=== PATIENT | male | born 1950 | race Caucasian/White ===

== ENCOUNTER 2020-02-11 11:50 | Outpatient (REF) | payer OTHER, SELFPAY ==
[2020-02-11 13:52] LABS: MANUAL DIFF FLAG NO
[2020-02-11 13:57] LABS: Basophils Absolute Auto 0.1 X10*3/uL (0.0-0.2); Basophils Percent Auto 0.7 % (0-2); Eosinophils Absolute Auto 0.2 X10*3/uL (0.0-0.4); Eosinophils Percent Auto 2.9 % (0-4); Hematocrit 41.8 % (42-52); Imm Gran Abs Auto 0.03 X10*3/uL (0.00-0.03); Imm Gran Pct Auto 0.4 % (0.0-0.4); Lymphocytes Percent Auto 24.4 % (20-40); Mean Corpuscular HGB Conc 33.5 g/dl (31.0-36.0); Mean Corpuscular Hemoglobin 31.7 pg (27.0-33.0); Mean Corpuscular Volume 94.8 fL (80-98); Mean Platelet Volume 9.7 fL (9.4-12.4); Monocytes Absolute Auto 0.6 X10*3/uL (0.1-1.2); Monocytes Percent Auto 7.3 % (2-11); Neutrophils Absolute Auto 5.2 X10*3/uL (2.0-8.3); Neutrophils Percent Auto 64.3 % (45-73); Platelet Count 357 X10*3/uL (160-400); Red Blood Count 4.41 X10*6/uL (4.60-5.80); Red Cell Distribution Width 11.9 % (11.0-16.0); White Blood Count 8.1 X10*3/uL (4.8-10.8)
[2020-02-11 14:02] LABS: Estimated Average Glucose 171 mg/dL; Hemoglobin A1c % 7.6 %
[2020-02-11 14:24] LABS: Alanine Aminotransferase 35 U/L (0-40); Albumin Level 4.5 g/dL (3.5-5.0); Alkaline Phosphatase 111 U/L (39-117); Anion Gap 14 (12-20); Aspartate Amino Transferase 34 U/L (5-37); Bilirubin Total 0.5 mg/dL (0.0-1.0); Blood Urea Nitrogen 15 mg/dL (9-16); Calcium 9.2 mg/dL (8.4-10.2); Carbon Dioxide 27 mmol/L (22-29); Chloride 99 mmol/L (96-108); Estimated Glomerular Filt Rate > 60; Glucose Random 123 mg/dL (60-115); Potassium 4.4 mmol/l (3.3-5.1); Sodium 136 mmol/L (135-145); Total Protein 7.7 g/dL (6.5-8.0)
== END 2020-02-11 11:51 | disposition home or self-care (01) ==
LOC: HO.10HDL 11:50
PROVIDERS: PCP Internal Medicine; Visit Provider Internal Medicine
DX: E78.00 Pure hypercholesterolemia, unspecified (principal); E11.9 Type 2 diabetes mellitus without complications; I10 Essential (primary) hypertension
CPT/HCPCS: 36415; 80053; 83036; 85025

== ENCOUNTER 2020-04-20 13:57 | Outpatient (REF) | payer MEDICARE, MEDICAID, SELFPAY ==
[2020-04-20 15:06] LABS: Influenza A PCR NEGATIVE (Negative); Influenza B PCR NEGATIVE (Negative); Resp Syncy Virus RNA Qual PCR NEGATIVE (Negative); SARS COV2 PCR INHOUSE NEGATIVE (Negative)
== END 2020-04-20 13:58 | disposition home or self-care (01) ==
LOC: HO.LNP 13:57
PROVIDERS: Visit Provider Internal Medicine
DX: Z20.822 Contact with and (suspected) exposure to COVID-19 (principal)
CPT/HCPCS: 0241U

== ENCOUNTER 2020-05-26 10:56 | Outpatient (REF) | payer MEDICARE, MEDICAID, SELFPAY ==
--- NOTE | ~2020-05-26 | XR_ITS ---
EXAMINATION: XR CHEST CLINICAL INFORMATION: Hypertension. Diabetes. COMPARISON: None TECHNIQUE: 2 views of the chest were obtained. FINDINGS: The cardiac silhouette does not appear enlarged. The right pulmonary hilum appears prominent. There is more peripheral right upper or middle lobe linear scarring or subsegmental atelectasis. The lungs are otherwise clear. There is no pleural effusion or pneumothorax. There are degenerative changes of the spine. XR/XR chest 2V IMPRESSION: Prominent right pulmonary hilum and more peripheral linear scarring or subsegmental atelectasis. Comparison with old outside chest x-rays if available is recommended. Otherwise follow-up chest CT scan with IV contrast should be considered.
[2020-05-26 12:55] LABS: MANUAL DIFF FLAG NO
[2020-05-26 13:13] LABS: Basophils Absolute Auto 0.1 X10*3/uL (0.0-0.2); Basophils Percent Auto 0.6 % (0-2); Eosinophils Absolute Auto 0.4 X10*3/uL (0.0-0.4); Hematocrit 39.6 % (42-52); Imm Gran Abs Auto 0.03 X10*3/uL (0.00-0.03); Imm Gran Pct Auto 0.4 % (0.0-0.4); Lymphocytes Absolute Auto 1.8 X10*3/uL (1.2-4.9); Mean Corpuscular HGB Conc 32.8 g/dl (31.0-36.0); Mean Corpuscular Hemoglobin 31.3 pg (27.0-33.0); Mean Corpuscular Volume 95.2 fL (80-98); Mean Platelet Volume 9.9 fL (9.4-12.4); Monocytes Absolute Auto 0.6 X10*3/uL (0.1-1.2); Neutrophils Absolute Auto 5.1 X10*3/uL (2.0-8.3); Platelet Count 360 X10*3/uL (160-400); Red Blood Count 4.16 X10*6/uL (4.60-5.80); Red Cell Distribution Width 12.2 % (11.0-16.0)
[2020-05-26 13:33] LABS: Alanine Aminotransferase 33 U/L (0-40); Albumin Level 4.2 g/dL (3.5-5.0); Alkaline Phosphatase 110 U/L (39-117); Anion Gap 15 (12-20); Aspartate Amino Transferase 31 U/L (5-37); Bilirubin Total 0.6 mg/dL (0.0-1.0); Blood Urea Nitrogen 14 mg/dL (9-16); Calcium 8.9 mg/dL (8.4-10.2); Carbon Dioxide 24 mmol/L (22-29); Chloride 102 mmol/L (96-108); Estimated Glomerular Filt Rate > 60; Glucose Random 134 mg/dL (60-115); Potassium 4.1 mmol/L (3.3-5.1); Sodium 137 mmol/L (135-145); Total Protein 7.2 g/dL (6.5-8.0)
[2020-05-26 13:43] LABS: Creatinine Urine 79.43 mg/dL
[2020-05-26 14:00] LABS: Estimated Average Glucose 183 mg/dL
== END 2020-05-26 10:57 | disposition home or self-care (01) ==
LOC: HO.10HDL 10:56
PROVIDERS: Visit Provider Internal Medicine
DX: I10 Essential (primary) hypertension (principal); E11.9 Type 2 diabetes mellitus without complications; R05 Cough; N40.0 Benign prostatic hyperplasia without lower urinary tract symptoms
CPT/HCPCS: 36415; 71046; 80053; 82043; 83036; 85025

== ENCOUNTER 2020-06-03 08:13 | Outpatient (REF) | payer MEDICARE, MEDICAID, SELFPAY ==
--- NOTE | ~2020-06-03 | CT_ITS ---
EXAMINATION: CT CHEST WITH CONTRAST CLINICAL INFORMATION: Prominent right pulmonary hilum. COMPARISON: Chest x-ray 05/26/2020. TECHNIQUE: Multidetector volumetric CT imaging of the chest was obtained after the administration of 65 mL of Omnipaque 350 intravenous contrast without immediate adverse reactions. Axial MIP volume rendering provided. Sagittal and coronal reformatted images were obtained. This CT examination was performed using dose optimization techniques as appropriate, variously including the following: *Automated exposure control *Adjustment of mA and/or kV according to patient size (this includes techniques or standardized protocols for targeted exams where dose is matched to indication/reason for exam; i.e. extremities or head) *Use of iterative reconstruction technique DLP: 136 mGy-cm FINDINGS: LUNGS: There is confluent airspace opacity with volume loss in the medial aspect of the right upper lobe, inferiorly extending to the beronica. There is bronchiectasis present in this region. There is otherwise mild bronchiectasis in the right upper lobe, with patchy peribronchial opacities. 2 mm nodule right upper lobe, 9:98. 2 mm probable calcified nodule right lower lobe 9:132. MEDIASTINUM: Enlarged precarinal lymph node measuring 1.1 cm in short axis. Enlarged right hilar lymph node measuring 1.3 cm. No suspicious findings in the visualized thyroid gland. Normal caliber aorta. Coronary artery calcification. Normal heart size. No pericardial effusion. Esophagus is nondistended. PLEURA: There is no pleural effusion. No pleural mass or thickening. AXILLA: No lymphadenopathy. UPPER ABDOMEN: Hepatic steatosis. Fatty atrophy of the pancreas. Gallbladder is nondistended. Adrenal glands appear unremarkable. OSSEOUS STRUCTURES: Thoracic spondylosis. No acute findings. CT/CT chest w con IMPRESSION: 1. Confluent airspace opacity with volume loss, bronchiectasis in the medial aspect of the right upper lobe and the hilar region. There is otherwise peribronchial thickening and mild bronchiectasis in the right upper lobe as well. These findings may reflect infectious or inflammatory process. Recommend clinical correlation and management. Recommend 3-month follow-up CT for reassessment. 2. Enlarged mediastinal and right hilar lymph node. 3. Hepatic steatosis.
== END 2020-06-03 08:14 | disposition home or self-care (01) ==
LOC: HO.CT 08:13
PROVIDERS: Visit Provider Internal Medicine
DX: R91.8 Other nonspecific abnormal finding of lung field (principal)
CPT/HCPCS: 71260; Q9967

== ENCOUNTER → 2020-06-10 09:51 | Outpatient (BNVA) | payer MEDICARE, MEDICAID, SELFPAY | PROVIDERS: PCP Internal Medicine; Visit Provider Internal Medicine | DX: J47.9 Bronchiectasis, uncomplicated (principal) | CPT/HCPCS: 99202 ==

== ENCOUNTER 2020-08-21 09:06 | Outpatient (REF) | payer MEDICARE, MEDICAID, SELFPAY ==
--- NOTE | ~2020-08-21 | CT_ITS ---
EXAMINATION: CT CHEST WITHOUT CONTRAST CLINICAL INFORMATION: Bronchiectasis COMPARISON: Previous chest CT May 2020 TECHNIQUE: Multidetector volumetric CT imaging of the chest was done. Axial MIP volume rendering provided. Sagittal and coronal reformatted images were obtained. This CT examination was performed using dose optimization techniques as appropriate, variously including the following: *Automated exposure control *Adjustment of mA and/or kV according to patient size (this includes techniques or standardized protocols for targeted exams where dose is matched to indication/reason for exam; i.e. extremities or head) *Use of iterative reconstruction technique DLP: 192 mGy-cm FINDINGS: LUNGS: There is interval improvement in the atelectasis/consolidation seen in the anterior segment of the right middle lobe adjacent to the mediastinum and minor fissure. Radiographic abnormality in this region and [address] follow-up is recommended. There is a 3 mm calcified right middle lobe nodule in this region axial image 262 series 7 that is stable. There is a 2 mm right middle lobe nodule axial image 318 series 7 that is stable. The lungs are otherwise clear. MEDIASTINUM: There are small mediastinal lymph nodes. No enlarged lymph nodes are seen. There is a small amount of fluid seen in the mediastinum or pericardium versus bronchogenic or pericardial cyst adjacent to the right upper lobe atelectasis/consolidation that appears unchanged measuring 1 x 4 cm axial image 28 series 3. There is mild coronary artery calcification. PLEURA: There is no pleural effusion. No pleural mass or thickening. AXILLA: No lymphadenopathy. UPPER ABDOMEN: There is fatty infiltration of the pancreas. There may be a duodenal diverticulum and OSSEOUS STRUCTURES: There are degenerative changes of the spine. CT/CT chest wo con IMPRESSION: Improving right upper lobe atelectasis/consolidation from 06/17/2019 exam. Continued imaging follow-up recommended. Stable adjacent small amount of mediastinal or pericardial fluid versus a pericardial or bronchogenic cyst. Stable small pulmonary nodules. Coronary artery calcification.
== END 2020-08-21 09:07 | disposition home or self-care (01) ==
LOC: HO.CT 09:06
PROVIDERS: PCP Internal Medicine; Visit Provider Internal Medicine
DX: J47.9 Bronchiectasis, uncomplicated (principal)
CPT/HCPCS: 71250

== ENCOUNTER → 2020-09-14 09:54 | Outpatient (BNVA) | payer MEDICARE, MEDICAID, SELFPAY | PROVIDERS: PCP Internal Medicine; Visit Provider Internal Medicine | DX: R93.89 Abnormal findings on diagnostic imaging of other specified body structures (principal); J47.9 Bronchiectasis, uncomplicated | CPT/HCPCS: 99212 ==

== ENCOUNTER 2020-10-30 09:58 | Outpatient (REF) | payer MEDICARE, MEDICAID, SELFPAY ==
[2020-10-30 10:47] LABS: Estimated Average Glucose 151 mg/dL; Hemoglobin A1c % 6.9 %
[2020-10-30 10:52] LABS: Alanine Aminotransferase 34 U/L (0-40); Albumin Level 4.3 g/dL (3.5-5.0); Alkaline Phosphatase 86 U/L (39-117); Anion Gap 14 (12-20); Aspartate Amino Transferase 38 U/L (5-37); Bilirubin Total 0.8 mg/dL (0.0-1.0); Blood Urea Nitrogen 14 mg/dL (9-16); Calcium 9.7 mg/dL (8.4-10.2); Carbon Dioxide 25 mmol/L (22-29); Chloride 102 mmol/L (96-108); Estimated Glomerular Filt Rate > 60; Glucose Random 135 mg/dL (60-115); Potassium 4.5 mmol/L (3.3-5.1); Sodium 136 mmol/L (135-145); Total Protein 6.9 g/dL (6.5-8.0)
== END 2020-10-30 09:59 | disposition home or self-care (01) ==
LOC: HO.10HDL 09:58
PROVIDERS: Visit Provider Internal Medicine
DX: E11.9 Type 2 diabetes mellitus without complications (principal); I10 Essential (primary) hypertension
CPT/HCPCS: 36415; 80053; 83036

== ENCOUNTER 2021-02-18 12:42 | Outpatient (REF) | payer MEDICARE, MEDICAID, SELFPAY ==
--- NOTE | ~2021-02-18 | CT_ITS ---
EXAMINATION: CT CHEST WITHOUT CONTRAST CLINICAL INFORMATION: Bronchiectasis, uncomplicated. COMPARISON: CT chest 08/21/2020 TECHNIQUE: Multidetector volumetric CT imaging of the chest was done. Axial MIP volume rendering provided. Sagittal and coronal reformatted images were obtained. This CT examination was performed using dose optimization techniques as appropriate, variously including the following: *Automated exposure control *Adjustment of mA and/or kV according to patient size (this includes techniques or standardized protocols for targeted exams where dose is matched to indication/reason for exam; i.e. extremities or head) *Use of iterative reconstruction technique DLP: 170 mGy-cm FINDINGS: LUNGS: The previously seen atelectasis/consolidation in the anterior segment of the right middle lobe adjacent to the mediastinum and minor fissure that had previously shown interval improvement is stable in appearances when compared to the prior study. It appears as a band-like area of atelectasis or scarring adjacent to the mediastinum. A tiny focal calcification is seen within this. Evolution of findings are not suggestive of neoplastic disease. A few scattered right lung 1-2 mm micronodules (6:52, 59 and 116) are unchanged. MEDIASTINUM: Tiny fluid collection in the right anterior mediastinum adjacent to the above-mentioned resolving atelectasis/consolidation appears slightly smaller. PLEURA: There is no pleural effusion. No pleural mass or thickening. AXILLA: No lymphadenopathy. UPPER ABDOMEN: Unremarkable. OSSEOUS STRUCTURES: Degenerative changes present in the spine, most marked in the lower cervical/upper thoracic region. CT/CT chest wo con IMPRESSION: Stable appearance of right scarring/atelectasis. Other findings, as described above. Fleischner guidelines were followed.
== END 2021-02-18 12:43 | disposition home or self-care (01) ==
LOC: HO.CT 12:42
PROVIDERS: PCP Internal Medicine; Visit Provider Internal Medicine
DX: J47.9 Bronchiectasis, uncomplicated (principal); R93.89 Abnormal findings on diagnostic imaging of other specified body structures
CPT/HCPCS: 71250

== ENCOUNTER 2021-03-02 10:27 | Outpatient (REF) | payer MEDICARE, MEDICAID, SELFPAY ==
[2021-03-02 13:21] LABS: MANUAL DIFF FLAG NO
[2021-03-02 13:22] LABS: Basophils Absolute Auto 0.1 X10*3/uL (0.0-0.2); Eosinophils Absolute Auto 0.2 X10*3/uL (0.0-0.4); Eosinophils Percent Auto 3.7 % (0-4); Hematocrit 41.9 % (42.0-52.0); Hemoglobin 13.9 g/dl (14.0-18.0); Imm Gran Abs Auto 0.01 X10*3/uL (0.00-0.03); Imm Gran Pct Auto 0.2 % (0.0-0.4); Lymphocytes Absolute Auto 1.6 X10*3/uL (1.2-4.9); Lymphocytes Percent Auto 25.1 % (20-40); Mean Corpuscular HGB Conc 33.2 g/dl (31.0-36.0); Mean Corpuscular Hemoglobin 31.7 pg (27.0-33.0); Mean Corpuscular Volume 95.7 fL (80.0-98.0); Monocytes Absolute Auto 0.5 X10*3/uL (0.1-1.2); Monocytes Percent Auto 7.6 % (2-11); Neutrophils Absolute Auto 3.9 x10*3/uL (2.0-8.3); Neutrophils Percent Auto 62.4 % (45-73); Platelet Count 307 X10*3/uL (160-400); Red Blood Count 4.38 X10*6/uL (4.60-5.80); White Blood Count 6.2 X10*3/uL (4.8-10.8)
[2021-03-02 13:41] LABS: Estimated Average Glucose 171 mg/dL; Hemoglobin A1c % 7.6 %
[2021-03-02 13:43] LABS: Appearance Urine CLEAR; Color Urine YELLOW; Glucose Urine UA NEG (NEG); Leukocyte Esterase Urine NEG (NEG); Nitrite Urine NEG (NEG); Urine Blood NEG (NEG); Urine Ketones NEG (NEG); Urine Protein NEG (NEG-TRACE)
[2021-03-02 13:52] LABS: Alanine Aminotransferase 37 U/L (0-40); Albumin Level 4.2 g/dL (3.5-5.0); Alkaline Phosphatase 82 U/L (39-117); Anion Gap 11 (12-20); Aspartate Amino Transferase 30 U/L (5-37); Bilirubin Total 0.5 mg/dL (0.0-1.0); Blood Urea Nitrogen 13 mg/dL (9-16); Calcium 9.3 mg/dL (8.4-10.2); Carbon Dioxide 29 mmol/L (22-29); Chloride 103 mmol/L (96-108); Cholesterol 148 mg/dL; Estimated Glomerular Filt Rate > 60; Glucose Fasting 145 mg/dL (60-99); HDL Cholesterol 48 mg/dL; LDL Cholesterol Calculated 82 mg/dl; Potassium 4.6 mmol/L (3.3-5.1); Sodium 138 mmol/L (135-145); Total Protein 6.9 g/dL (6.5-8.0); Triglycerides 93 mg/dL
[2021-03-02 14:03] LABS: Creatinine Urine 113.62 mg/dL; Microalbum/Creatinine Ratio Ur 6.1 ug/mg cr
[2021-03-02 14:12] LABS: PSA,Total (Free>4and<10) 1.18 ng/mL (0.00-4.00)
== END 2021-03-02 10:28 | disposition home or self-care (01) ==
LOC: HO.10HDL 10:27
PROVIDERS: Visit Provider Internal Medicine
DX: Z12.5 Encounter for screening for malignant neoplasm of prostate (principal); E11.9 Type 2 diabetes mellitus without complications; E78.00 Pure hypercholesterolemia, unspecified; N40.0 Benign prostatic hyperplasia without lower urinary tract symptoms; I10 Essential (primary) hypertension
CPT/HCPCS: 36415; 80053; 80061; 81003; 82043; 83036; 84153; 85025

== ENCOUNTER → 2021-03-10 09:51 | Outpatient (BNVA) | payer MEDICARE, MEDICAID, SELFPAY | PROVIDERS: PCP Internal Medicine; Visit Provider Internal Medicine | DX: R93.89 Abnormal findings on diagnostic imaging of other specified body structures (principal); R91.8 Other nonspecific abnormal finding of lung field | CPT/HCPCS: 99212 ==

== ENCOUNTER 2021-06-09 10:56 | Outpatient (REF) | payer MEDICARE, MEDICAID, SELFPAY ==
[2021-06-09 12:59] LABS: Basophils Absolute Auto 0.1 X10*3/uL (0.0-0.2); Basophils Percent Auto 0.8 % (0-2); Eosinophils Absolute Auto 0.3 X10*3/uL (0.0-0.4); Eosinophils Percent Auto 3.9 % (0-4); Hemoglobin 13.8 g/dl (14.0-18.0); Imm Gran Abs Auto 0.03 X10*3/uL (0.00-0.03); Imm Gran Pct Auto 0.4 % (0.0-0.4); Lymphocytes Absolute Auto 1.8 X10*3/uL (1.2-4.9); Lymphocytes Percent Auto 24.3 % (20-40); MANUAL DIFF FLAG NO; Mean Corpuscular HGB Conc 33.7 g/dl (31.0-36.0); Mean Corpuscular Hemoglobin 32.2 pg (27.0-33.0); Mean Corpuscular Volume 95.8 fL (80.0-98.0); Monocytes Absolute Auto 0.6 X10*3/uL (0.1-1.2); Monocytes Percent Auto 7.6 % (2-11); Neutrophils Absolute Auto 4.7 x10*3/uL (2.0-8.3); Platelet Count 297 X10*3/uL (160-400); Red Blood Count 4.28 X10*6/uL (4.60-5.80); White Blood Count 7.5 X10*3/uL (4.8-10.8)
[2021-06-09 13:20] LABS: Alanine Aminotransferase 33 U/L (0-40); Albumin Level 4.4 g/dL (3.5-5.0); Alkaline Phosphatase 89 U/L (39-117); Anion Gap 12 (12-20); Aspartate Amino Transferase 29 U/L (5-37); Bilirubin Total 0.8 mg/dL (0.0-1.0); Blood Urea Nitrogen 16 mg/dL (9-16); Calcium 9.6 mg/dL (8.4-10.2); Carbon Dioxide 27 mmol/L (22-29); Chloride 103 mmol/L (96-108); Estimated Glomerular Filt Rate > 60; Glucose Random 127 mg/dL (60-115); Potassium 4.5 mmol/L (3.3-5.1); Sodium 137 mmol/L (135-145); Total Protein 7.2 g/dL (6.5-8.0)
[2021-06-09 13:56] LABS: Estimated Average Glucose 174 mg/dL; Hemoglobin A1c % 7.7 %
[2021-06-10 05:05] LABS: SARS COV2 IgG Negative (Negative)
== END 2021-06-09 10:57 | disposition home or self-care (01) ==
LOC: HO.10HDL 10:56
PROVIDERS: Visit Provider Internal Medicine
DX: E11.9 Type 2 diabetes mellitus without complications (principal); I10 Essential (primary) hypertension; D64.9 Anemia, unspecified; Z01.84 Encounter for antibody response examination
CPT/HCPCS: 36415; 80053; 83036; 85025; 86769

== ENCOUNTER 2021-06-10 11:25 | Outpatient (REF) | payer MEDICARE, MEDICAID, SELFPAY ==
[2021-06-10 11:57] LABS: MANUAL DIFF FLAG NO
[2021-06-10 12:40] LABS: Basophils Absolute Auto 0.1 X10*3/uL (0.0-0.2); Basophils Percent Auto 0.5 % (0-2); Eosinophils Absolute Auto 0.2 X10*3/uL (0.0-0.4); Eosinophils Percent Auto 1.8 % (0-4); Hematocrit 41.7 % (42.0-52.0); Imm Gran Abs Auto 0.03 X10*3/uL (0.00-0.03); Imm Gran Pct Auto 0.3 % (0.0-0.4); Lymphocytes Absolute Auto 1.7 X10*3/uL (1.2-4.9); Lymphocytes Percent Auto 18.4 % (20-40); Mean Corpuscular HGB Conc 33.6 g/dl (31.0-36.0); Mean Corpuscular Hemoglobin 31.9 pg (27.0-33.0); Mean Platelet Volume 9.6 fL (9.4-12.4); Monocytes Absolute Auto 0.6 X10*3/uL (0.1-1.2); Monocytes Percent Auto 6.7 % (2-11); Neutrophils Absolute Auto 6.6 x10*3/uL (2.0-8.3); Neutrophils Percent Auto 72.3 % (45-73); Platelet Count 303 X10*3/uL (160-400); Red Blood Count 4.39 X10*6/uL (4.60-5.80); Red Cell Distribution Width 11.9 % (11.0-16.0); White Blood Count 9.2 X10*3/uL (4.8-10.8)
[2021-06-10 12:48] LABS: Appearance Urine CLEAR; Color Urine YELLOW; Glucose Urine UA NEG (NEG); Leukocyte Esterase Urine NEG (NEG); Nitrite Urine NEG (NEG); Urine Blood NEG (NEG); Urine Ketones NEG (NEG); Urine Protein NEG (NEG-TRACE)
[2021-06-10 13:03] LABS: Anion Gap 14 (12-20); Blood Urea Nitrogen 16 mg/dL (9-16); C Reactive Protein 0.05 mg/dL (< or = 0.50); Calcium 9.7 mg/dL (8.4-10.2); Carbon Dioxide 26 mmol/L (22-29); Chloride 102 mmol/L (96-108); Estimated Glomerular Filt Rate > 60; Glucose Random 125 mg/dL (60-115); Potassium 4.7 mmol/L (3.3-5.1); Sodium 137 mmol/L (135-145)
[2021-06-10 13:34] LABS: Vitamin B12 353 pg/mL (200-900)
== END 2021-06-10 11:26 | disposition home or self-care (01) ==
LOC: HO.LAB 11:25
PROVIDERS: PCP Internal Medicine; Visit Provider Internal Medicine
DX: R10.2 Pelvic and perineal pain (principal); E11.9 Type 2 diabetes mellitus without complications; R53.1 Weakness
CPT/HCPCS: 36415; 80048; 81003; 82550; 82607; 85025; 86140; 87086

== ENCOUNTER 2021-09-22 09:56 | Outpatient (REF) | payer MEDICARE, MEDICAID, SELFPAY ==
[2021-09-22 10:22] LABS: MANUAL DIFF FLAG NO
[2021-09-22 10:32] LABS: Basophils Absolute Auto 0.1 X10*3/uL (0.0-0.2); Basophils Percent Auto 0.8 % (0-2); Eosinophils Absolute Auto 0.5 X10*3/uL (0.0-0.4); Eosinophils Percent Auto 5.6 % (0-4); Hematocrit 41.7 % (42.0-52.0); Hemoglobin 14.2 g/dl (14.0-18.0); Imm Gran Abs Auto 0.01 X10*3/uL (0.00-0.03); Imm Gran Pct Auto 0.1 % (0.0-0.4); Lymphocytes Absolute Auto 1.8 X10*3/uL (1.2-4.9); Lymphocytes Percent Auto 21.3 % (20-40); Mean Corpuscular HGB Conc 34.1 g/dl (31.0-36.0); Mean Corpuscular Hemoglobin 31.7 pg (27.0-33.0); Mean Corpuscular Volume 93.1 fL (80.0-98.0); Mean Platelet Volume 9.4 fL (9.4-12.4); Monocytes Absolute Auto 0.7 X10*3/uL (0.1-1.2); Monocytes Percent Auto 8.6 % (2-11); Neutrophils Absolute Auto 5.4 x10*3/uL (2.0-8.3); Neutrophils Percent Auto 63.6 % (45-73); Platelet Count 273 X10*3/uL (160-400); Red Blood Count 4.48 X10*6/uL (4.60-5.80); White Blood Count 8.5 X10*3/uL (4.8-10.8)
[2021-09-22 10:59] LABS: Estimated Average Glucose 177 mg/dL; Hemoglobin A1c % 7.8 %
[2021-09-22 11:21] LABS: Alanine Aminotransferase 33 U/L (0-40); Albumin Level 4.4 g/dL (3.5-5.0); Alkaline Phosphatase 88 U/L (39-117); Anion Gap 10 (12-20); Aspartate Amino Transferase 30 U/L (5-37); Bilirubin Total 0.9 mg/dL (0.0-1.0); Blood Urea Nitrogen 10 mg/dL (9-16); Calcium 9.2 mg/dL (8.4-10.2); Carbon Dioxide 29 mmol/L (22-29); Chloride 103 mmol/L (96-108); Estimated Glomerular Filt Rate > 60; Glucose Fasting 128 mg/dL (60-99); Potassium 4.3 mmol/L (3.3-5.1); Sodium 138 mmol/L (135-145); Total Protein 7.2 g/dL (6.5-8.0)
== END 2021-09-22 09:57 | disposition home or self-care (01) ==
LOC: HO.10HDL 09:56
PROVIDERS: Visit Provider Internal Medicine
DX: E11.9 Type 2 diabetes mellitus without complications (principal); I10 Essential (primary) hypertension; E78.00 Pure hypercholesterolemia, unspecified
CPT/HCPCS: 36415; 80053; 83036; 85025

== ENCOUNTER 2021-12-22 12:20 | Outpatient (REF) | payer MEDICARE, MEDICAID, SELFPAY ==
[2021-12-22 13:53] LABS: MANUAL DIFF FLAG NO
[2021-12-22 14:02] LABS: Basophils Absolute Auto 0.1 X10*3/uL (0.0-0.2); Basophils Percent Auto 0.8 % (0-2); Eosinophils Absolute Auto 0.3 X10*3/uL (0.0-0.4); Eosinophils Percent Auto 3.4 % (0-4); Hematocrit 40.6 % (42.0-52.0); Hemoglobin 14.1 g/dl (14.0-18.0); Imm Gran Abs Auto 0.02 X10*3/uL (0.00-0.03); Imm Gran Pct Auto 0.3 % (0.0-0.4); Lymphocytes Absolute Auto 1.9 X10*3/uL (1.2-4.9); Lymphocytes Percent Auto 24.1 % (20-40); Mean Corpuscular HGB Conc 34.7 g/dl (31.0-36.0); Mean Corpuscular Hemoglobin 33.3 pg (27.0-33.0); Mean Platelet Volume 9.8 fL (9.4-12.4); Monocytes Absolute Auto 0.7 X10*3/uL (0.1-1.2); Monocytes Percent Auto 9.3 % (2-11); Neutrophils Absolute Auto 4.9 x10*3/uL (2.0-8.3); Neutrophils Percent Auto 62.1 % (45-73); Platelet Count 256 X10*3/uL (160-400); Red Blood Count 4.23 X10*6/uL (4.60-5.80); Red Cell Distribution Width 12.3 % (11.0-16.0); White Blood Count 7.9 X10*3/uL (4.8-10.8)
[2021-12-22 14:12] LABS: Estimated Average Glucose 177 mg/dL; Hemoglobin A1c % 7.8 %
[2021-12-22 14:26] LABS: Alanine Aminotransferase 42 U/L (0-40); Albumin Level 4.4 g/dL (3.5-5.0); Alkaline Phosphatase 94 U/L (39-117); Anion Gap 16 (12-20); Aspartate Amino Transferase 36 U/L (5-37); Bilirubin Total 0.8 mg/dL (0.0-1.0); Blood Urea Nitrogen 13 mg/dL (9-16); Calcium 9.5 mg/dL (8.4-10.2); Carbon Dioxide 26 mmol/L (22-29); Chloride 99 mmol/L (96-108); Estimated Glomerular Filt Rate > 60; Glucose Random 110 mg/dL (60-115); Potassium 4.2 mmol/L (3.3-5.1); Sodium 137 mmol/L (135-145); Total Protein 7.2 g/dL (6.5-8.0)
[2021-12-22 15:03] LABS: Creatinine Urine 34.24 mg/dL; Microalbumin Urine < 5.0 mg/L
== END 2021-12-22 12:21 | disposition home or self-care (01) ==
LOC: HO.10HDL 12:20
PROVIDERS: Visit Provider Internal Medicine
DX: I10 Essential (primary) hypertension (principal); E11.9 Type 2 diabetes mellitus without complications
CPT/HCPCS: 36415; 80053; 82043; 83036; 85025

== ENCOUNTER → 2022-03-07 09:42 | Outpatient (BNVA) | payer MEDICARE, MEDICAID, SELFPAY | PROVIDERS: PCP Internal Medicine; Visit Provider Internal Medicine | DX: R93.89 Abnormal findings on diagnostic imaging of other specified body structures (principal); R91.8 Other nonspecific abnormal finding of lung field | CPT/HCPCS: 99212 ==

== ENCOUNTER 2022-03-23 10:44 | Outpatient (REF) | payer MEDICARE, MEDICAID, SELFPAY ==
[2022-03-23 13:41] LABS: MANUAL DIFF FLAG NO
[2022-03-23 13:46] LABS: Basophils Percent Auto 0.5 % (0-2); Eosinophils Absolute Auto 0.3 X10*3/uL (0.0-0.4); Eosinophils Percent Auto 3.6 % (0-4); Hematocrit 41.7 % (42.0-52.0); Imm Gran Abs Auto 0.02 X10*3/uL (0.00-0.03); Imm Gran Pct Auto 0.3 % (0.0-0.4); Lymphocytes Absolute Auto 1.8 X10*3/uL (1.2-4.9); Lymphocytes Percent Auto 23.3 % (20-40); Mean Corpuscular HGB Conc 33.6 g/dl (31.0-36.0); Mean Corpuscular Hemoglobin 31.8 pg (27.0-33.0); Mean Corpuscular Volume 94.8 fL (80.0-98.0); Mean Platelet Volume 9.8 fL (9.4-12.4); Monocytes Absolute Auto 0.7 X10*3/uL (0.1-1.2); Monocytes Percent Auto 8.8 % (2-11); Neutrophils Absolute Auto 4.8 x10*3/uL (2.0-8.3); Neutrophils Percent Auto 63.5 % (45-73); Platelet Count 313 X10*3/uL (160-400); Red Cell Distribution Width 12.1 % (11.0-16.0); White Blood Count 7.5 X10*3/uL (4.8-10.8)
[2022-03-23 14:19] LABS: Alanine Aminotransferase 61 U/L (0-40); Albumin Level 4.3 g/dL (3.5-5.0); Alkaline Phosphatase 99 U/L (39-117); Anion Gap 15 (12-20); Aspartate Amino Transferase 75 U/L (5-37); Blood Urea Nitrogen 17 mg/dL (9-16); Calcium 9.3 mg/dL (8.4-10.2); Carbon Dioxide 27 mmol/L (22-29); Chloride 100 mmol/L (96-108); Cholesterol 151 mg/dL; Estimated Glomerular Filt Rate > 60; Glucose Fasting 122 mg/dL (60-99); HDL Cholesterol 44 mg/dL; LDL Cholesterol Calculated 79 mg/dl; Potassium 4.3 mmol/L (3.3-5.1); Sodium 138 mmol/L (135-145); Total Protein 7.2 g/dL (6.5-8.0); Triglycerides 144 mg/dL
[2022-03-23 14:26] LABS: Creatinine Urine 135.45 mg/dL; Microalbum/Creatinine Ratio Ur 6.6 ug/mg cr
[2022-03-23 14:34] LABS: Prostate Specific Antigen 1.78 ng/mL (<0.05-4.0)
[2022-03-23 14:46] LABS: Estimated Average Glucose 206 mg/dL; Hemoglobin A1c % 8.8 %
== END 2022-03-23 10:45 | disposition home or self-care (01) ==
LOC: HO.10HDL 10:44
PROVIDERS: Visit Provider Internal Medicine
DX: Z00.00 Encounter for general adult medical examination without abnormal findings (principal); Z12.5 Encounter for screening for malignant neoplasm of prostate; E11.9 Type 2 diabetes mellitus without complications
CPT/HCPCS: 36415; 80053; 80061; 82043; 83036; 84153; 85025

== ENCOUNTER 2022-06-22 10:40 | Outpatient (REF) | payer MEDICARE, MEDICAID, SELFPAY ==
[2022-06-22 13:47] LABS: Estimated Average Glucose 189 mg/dL; Hemoglobin A1c % 8.2 %
[2022-06-22 13:56] LABS: Anion Gap 12 (12-20); Blood Urea Nitrogen 15 mg/dL (9-16); Calcium 9.3 mg/dL (8.4-10.2); Carbon Dioxide 28 mmol/L (22-29); Chloride 103 mmol/L (96-108); Estimated Glomerular Filt Rate > 60; Glucose Random 122 mg/dL (60-115); Potassium 4.4 mmol/L (3.3-5.1); Sodium 139 mmol/L (135-145)
[2022-06-22 14:54] LABS: Microalbumin Urine < 5.0 mg/L
== END 2022-06-22 10:41 | disposition home or self-care (01) ==
LOC: HO.10HDL 10:40
PROVIDERS: Visit Provider Internal Medicine
DX: E11.9 Type 2 diabetes mellitus without complications (principal); N40.0 Benign prostatic hyperplasia without lower urinary tract symptoms; I10 Essential (primary) hypertension
CPT/HCPCS: 36415; 80048; 82043; 83036

== ENCOUNTER → 2022-06-30 13:27 | Outpatient (BNVA) | payer MEDICARE, MEDICAID, SELFPAY | PROVIDERS: PCP Internal Medicine; Visit Provider Orthopaedic Surgery | DX: M70.41 Prepatellar bursitis, right knee (principal); E11.9 Type 2 diabetes mellitus without complications | CPT/HCPCS: 99202 ==

== ENCOUNTER 2022-09-28 10:07 | Outpatient (REF) | payer MEDICARE, MEDICAID, SELFPAY ==
--- NOTE | ~2022-09-28 | XR_ITS ---
EXAMINATION: XR TIBIA AND FIBULA, RIGHT CLINICAL INFORMATION: Bursitis of the right tibia. COMPARISON: None available. TECHNIQUE: AP and lateral views of the right tibia and fibula were obtained. FINDINGS: Alignment is anatomic. No displaced fracture. No destructive osseous lesions. There is focal soft tissue swelling superficial to the tibial tuberosity measuring 3.9 x 1.6 cm. There is quadriceps tendon enthesopathy. XR/XR tibia fibula RT 2V IMPRESSION: Focal soft tissue swelling superficial to the tibial tuberosity measuring 3.9 x 1.6 cm.
[2022-09-28 10:32] LABS: MANUAL DIFF FLAG NO
[2022-09-28 10:37] LABS: Basophils Absolute Auto 0.1 X10*3/uL (0.0-0.2); Basophils Percent Auto 0.8 % (0-2); Eosinophils Absolute Auto 0.4 X10*3/uL (0.0-0.4); Eosinophils Percent Auto 5.9 % (0-4); Hematocrit 40.9 % (42.0-52.0); Hemoglobin 13.7 g/dl (14.0-18.0); Imm Gran Abs Auto 0.02 X10*3/uL (0.00-0.03); Imm Gran Pct Auto 0.3 % (0.0-0.4); Lymphocytes Absolute Auto 1.8 X10*3/uL (1.2-4.9); Lymphocytes Percent Auto 28.5 % (20-40); Mean Corpuscular HGB Conc 33.5 g/dl (31.0-36.0); Mean Corpuscular Hemoglobin 31.9 pg (27.0-33.0); Mean Corpuscular Volume 95.3 fL (80.0-98.0); Mean Platelet Volume 9.3 fL (9.4-12.4); Monocytes Absolute Auto 0.5 X10*3/uL (0.1-1.2); Neutrophils Absolute Auto 3.7 x10*3/uL (2.0-8.3); Neutrophils Percent Auto 56.5 % (45-73); Platelet Count 246 X10*3/uL (160-400); Red Blood Count 4.29 X10*6/uL (4.60-5.80); Red Cell Distribution Width 12.2 % (11.0-16.0); White Blood Count 6.5 X10*3/uL (4.8-10.8)
[2022-09-28 10:55] LABS: Estimated Average Glucose 160 mg/dL; Hemoglobin A1c % 7.2 %
[2022-09-28 11:29] LABS: Alanine Aminotransferase 36 U/L (0-40); Albumin Level 4.4 g/dL (3.5-5.0); Alkaline Phosphatase 75 U/L (39-117); Anion Gap 14 (12-20); Aspartate Amino Transferase 39 U/L (5-37); Bilirubin Total 0.5 mg/dL (0.0-1.0); Blood Urea Nitrogen 13 mg/dL (9-16); Calcium 9.2 mg/dL (8.4-10.2); Carbon Dioxide 24 mmol/L (22-29); Chloride 104 mmol/L (96-108); Estimated Glomerular Filt Rate > 60; Glucose Random 126 mg/dL (60-115); Potassium 4.3 mmol/L (3.3-5.1); Sodium 138 mmol/L (135-145); Total Protein 7.2 g/dL (6.5-8.0)
== END 2022-09-28 10:08 | disposition home or self-care (01) ==
LOC: HO.10HDL 10:07
PROVIDERS: Visit Provider Internal Medicine
DX: I10 Essential (primary) hypertension (principal); E11.9 Type 2 diabetes mellitus without complications; M71.9 Bursopathy, unspecified; R60.0 Localized edema
CPT/HCPCS: 36415; 73590; 80053; 83036; 85025

== ENCOUNTER 2023-01-11 11:00 | Outpatient (REF) | payer MEDICARE, MEDICAID, SELFPAY ==
[2023-01-11 13:37] LABS: Estimated Average Glucose 169 mg/dL; Hemoglobin A1c % 7.5 % (<6.0)
[2023-01-11 14:08] LABS: Alanine Aminotransferase 36 U/L (0-40); Albumin Level 4.4 g/dL (3.5-5.0); Alkaline Phosphatase 81 U/L (39-117); Anion Gap 11 (12-20); Aspartate Amino Transferase 35 U/L (5-37); Bilirubin Total 0.7 mg/dL (0.0-1.0); Blood Urea Nitrogen 14 mg/dL (9-16); Calcium 9.2 mg/dL (8.4-10.2); Carbon Dioxide 30 mmol/L (22-29); Chloride 101 mmol/L (96-108); Estimated Glomerular Filt Rate > 60; Glucose Random 123 mg/dL (60-115); Sodium 138 mmol/L (135-145); Total Protein 7.5 g/dL (6.5-8.0)
[2023-01-11 14:32] LABS: Creatinine Urine 34.87 mg/dL; Microalbumin Urine < 5.0 mg/L
== END 2023-01-11 11:01 | disposition home or self-care (01) ==
LOC: HO.10HDL 11:00
PROVIDERS: Visit Provider Internal Medicine
DX: E11.9 Type 2 diabetes mellitus without complications (principal); I10 Essential (primary) hypertension; N40.0 Benign prostatic hyperplasia without lower urinary tract symptoms
CPT/HCPCS: 36415; 80053; 82043; 82570; 83036

== ENCOUNTER 2023-04-26 10:11 | Outpatient (REF) | payer MEDICARE, MEDICAID, SELFPAY ==
[2023-04-26 10:53] LABS: MANUAL DIFF FLAG NO
[2023-04-26 11:00] LABS: Basophils Absolute Auto 0.1 X10*3/uL (0.0-0.2); Basophils Percent Auto 0.8 % (0-2); Eosinophils Absolute Auto 0.3 X10*3/uL (0.0-0.4); Eosinophils Percent Auto 3.9 % (0-4); Hematocrit 39.7 % (42.0-52.0); Hemoglobin 13.5 g/dl (14.0-18.0); Imm Gran Abs Auto 0.01 X10*3/uL (0.00-0.03); Imm Gran Pct Auto 0.2 % (0.0-0.4); Lymphocytes Absolute Auto 1.8 X10*3/uL (1.2-4.9); Lymphocytes Percent Auto 26.5 % (20-40); Mean Corpuscular Hemoglobin 31.8 pg (27.0-33.0); Mean Corpuscular Volume 93.6 fL (80.0-98.0); Mean Platelet Volume 9.3 fL (9.4-12.4); Monocytes Absolute Auto 0.6 X10*3/uL (0.1-1.2); Monocytes Percent Auto 8.9 % (2-11); Neutrophils Percent Auto 59.7 % (45-73); Platelet Count 260 X10*3/uL (160-400); Red Blood Count 4.24 X10*6/uL (4.60-5.80); Red Cell Distribution Width 11.9 % (11.0-16.0); White Blood Count 6.6 X10*3/uL (4.8-10.8)
[2023-04-26 11:05] LABS: Appearance Urine Clear; Color Urine Yellow; Glucose Urine UA Negative (Negative); Leukocyte Esterase Urine Negative (Negative); Nitrite Urine Negative (Negative); PH 7.5 (5.0-9.0); Specific Gravity - Urine <= 1.005 (1.005-1.025); Urine Blood Negative (Negative); Urine Ketones Negative (Negative); Urine Protein Negative (Neg-Trace)
[2023-04-26 11:17] LABS: Alanine Aminotransferase 39 U/L (0-40); Albumin Level 4.4 g/dL (3.5-5.0); Alkaline Phosphatase 84 U/L (39-117); Anion Gap 12 (12-20); Aspartate Amino Transferase 36 U/L (5-37); Bilirubin Total 0.6 mg/dL (0.0-1.0); Blood Urea Nitrogen 12 mg/dL (9-16); Calcium 9.3 mg/dL (8.4-10.2); Carbon Dioxide 27 mmol/L (22-29); Chloride 102 mmol/L (96-108); Cholesterol 120 mg/dL (<200); Estimated Glomerular Filt Rate > 60; Glucose Fasting 150 mg/dL (60-99); HDL Cholesterol 54 mg/dL (>40); LDL Cholesterol Calculated 45 mg/dL (<100); Potassium 4.2 mmol/L (3.3-5.1); Sodium 137 mmol/L (135-145); Total Protein 7.3 g/dL (6.5-8.0); Triglycerides 108 mg/dL (<150)
[2023-04-26 11:33] LABS: Prostate Specific Antigen Scr 1.39 ng/mL (<0.05-4.0)
[2023-04-26 12:13] LABS: Creatinine Urine 26.04 mg/dL; Microalbumin Urine < 5.0 mg/L
[2023-04-26 12:48] LABS: Estimated Average Glucose 183 mg/dL
== END 2023-04-26 10:12 | disposition home or self-care (01) ==
LOC: HO.10HDL 10:11
PROVIDERS: Visit Provider Internal Medicine
DX: Z12.5 Encounter for screening for malignant neoplasm of prostate (principal); E11.9 Type 2 diabetes mellitus without complications; E78.00 Pure hypercholesterolemia, unspecified; I10 Essential (primary) hypertension; N40.0 Benign prostatic hyperplasia without lower urinary tract symptoms
CPT/HCPCS: 36415; 80053; 80061; 81003; 82043; 82570; 83036; 84153; 85025

== ENCOUNTER 2023-08-03 10:25 | Outpatient (REF) | payer MEDICARE, MEDICAID, SELFPAY ==
[2023-08-03 10:57] LABS: MANUAL DIFF FLAG NO
[2023-08-03 11:19] LABS: Alanine Aminotransferase 34 U/L (0-40); Albumin Level 4.7 g/dL (3.5-5.0); Alkaline Phosphatase 75 U/L (39-117); Anion Gap 11 (12-20); Aspartate Amino Transferase 37 U/L (5-37); Bilirubin Total 0.7 mg/dL (0.0-1.0); Blood Urea Nitrogen 13 mg/dL (9-16); Calcium 9.9 mg/dL (8.4-10.2); Carbon Dioxide 29 mmol/L (22-29); Chloride 102 mmol/L (96-108); Estimated Glomerular Filt Rate > 60; Glucose Random 136 mg/dL (60-115); Potassium 4.1 mmol/L (3.3-5.1); Sodium 138 mmol/L (135-145); Total Protein 7.8 g/dL (6.5-8.0)
[2023-08-03 11:20] LABS: Basophils Absolute Auto 0.1 X10*3/uL (0.0-0.2); Basophils Percent Auto 0.6 % (0-2); Eosinophils Absolute Auto 0.4 X10*3/uL (0.0-0.4); Eosinophils Percent Auto 4.3 % (0-4); Hematocrit 40.9 % (42.0-52.0); Hemoglobin 13.7 g/dl (14.0-18.0); Imm Gran Abs Auto 0.02 X10*3/uL (0.00-0.03); Imm Gran Pct Auto 0.2 % (0.0-0.4); Lymphocytes Absolute Auto 2.1 X10*3/uL (1.2-4.9); Lymphocytes Percent Auto 26.1 % (20-40); Mean Corpuscular HGB Conc 33.5 g/dl (31.0-36.0); Mean Corpuscular Hemoglobin 32.2 pg (27.0-33.0); Mean Corpuscular Volume 96.2 fL (80.0-98.0); Mean Platelet Volume 9.8 fL (9.4-12.4); Monocytes Absolute Auto 0.8 X10*3/uL (0.1-1.2); Monocytes Percent Auto 9.5 % (2-11); Neutrophils Absolute Auto 4.9 x10*3/uL (2.0-8.3); Neutrophils Percent Auto 59.3 % (45-73); Platelet Count 286 X10*3/uL (160-400); Red Blood Count 4.25 X10*6/uL (4.60-5.80); Red Cell Distribution Width 12.5 % (11.0-16.0); White Blood Count 8.2 X10*3/uL (4.8-10.8)
[2023-08-03 11:23] LABS: Estimated Average Glucose 171 mg/dL; Hemoglobin A1c % 7.6 % (<6.0)
[2023-08-03 15:16] LABS: Creatinine Urine 20.98 mg/dL; Microalbumin Urine < 5.0 mg/L
== END 2023-08-03 10:26 | disposition home or self-care (01) ==
LOC: HO.10HDL 10:25
PROVIDERS: Visit Provider Internal Medicine
DX: I10 Essential (primary) hypertension (principal); D64.9 Anemia, unspecified; N40.0 Benign prostatic hyperplasia without lower urinary tract symptoms; E11.9 Type 2 diabetes mellitus without complications
CPT/HCPCS: 36415; 80053; 82043; 82570; 83036; 85025

== ENCOUNTER 2023-11-23 10:56 | Outpatient (REF) | payer MEDICARE, MEDICAID, SELFPAY ==
[2023-11-23 13:43] LABS: Creatinine Urine 24.01 mg/dL; Estimated Average Glucose 154 mg/dL; Microalbum/Creatinine Ratio Ur 45.8 ug/mg cr (<30)
[2023-11-23 14:08] LABS: Alanine Aminotransferase 31 U/L (0-40); Albumin Level 4.5 g/dL (3.5-5.0); Alkaline Phosphatase 77 U/L (39-117); Anion Gap 12 (12-20); Aspartate Amino Transferase 32 U/L (5-37); Bilirubin Total 0.4 mg/dL (0.0-1.0); Blood Urea Nitrogen 9 mg/dL (9-16); Calcium 9.6 mg/dL (8.4-10.2); Carbon Dioxide 27 mmol/L (22-29); Chloride 104 mmol/L (96-108); Estimated Glomerular Filt Rate > 60; Glucose Random 132 mg/dL (60-115); Potassium 4.1 mmol/L (3.3-5.1); Sodium 139 mmol/L (135-145); Total Protein 7.5 g/dL (6.5-8.0)
== END 2023-11-23 10:57 | disposition home or self-care (01) ==
LOC: HO.10HDL 10:56
PROVIDERS: Visit Provider Internal Medicine
DX: E11.9 Type 2 diabetes mellitus without complications (principal); I10 Essential (primary) hypertension
CPT/HCPCS: 36415; 80053; 82043; 82570; 83036

== ENCOUNTER 2024-05-16 08:50 | Outpatient (REF) | payer MEDICARE, MEDICAID, SELFPAY ==
[2024-05-16 10:24] LABS: MANUAL DIFF FLAG NO
[2024-05-16 10:31] LABS: Basophils Percent Auto 0.4 % (0-2); Eosinophils Absolute Auto 0.3 X10*3/uL (0.0-0.4); Eosinophils Percent Auto 4.2 % (0-4); Hematocrit 39.3 % (42.0-52.0); Hemoglobin 13.1 g/dl (14.0-18.0); Imm Gran Abs Auto 0.03 X10*3/uL (0.00-0.03); Imm Gran Pct Auto 0.4 % (0.0-0.4); Lymphocytes Absolute Auto 1.5 X10*3/uL (1.2-4.9); Lymphocytes Percent Auto 20.9 % (20-40); Mean Corpuscular HGB Conc 33.3 g/dl (31.0-36.0); Mean Corpuscular Hemoglobin 31.7 pg (27.0-33.0); Mean Corpuscular Volume 95.2 fL (80.0-98.0); Mean Platelet Volume 9.3 fL (9.4-12.4); Monocytes Absolute Auto 0.7 X10*3/uL (0.1-1.2); Monocytes Percent Auto 9.9 % (2-11); Neutrophils Absolute Auto 4.6 x10*3/uL (2.0-8.3); Neutrophils Percent Auto 64.2 % (45-73); Platelet Count 281 X10*3/uL (160-400); Red Blood Count 4.13 X10*6/uL (4.60-5.80); White Blood Count 7.2 X10*3/uL (4.8-10.8)
[2024-05-16 10:36] LABS: Estimated Average Glucose 189 mg/dL; Hemoglobin A1c % 8.2 % (<6.0)
[2024-05-16 10:58] LABS: Alanine Aminotransferase 39 U/L (0-40); Albumin Level 4.3 g/dL (3.5-5.0); Alkaline Phosphatase 105 U/L (39-117); Anion Gap 12 (12-20); Aspartate Amino Transferase 35 U/L (5-37); Bilirubin Total 0.7 mg/dL (0.0-1.0); Blood Urea Nitrogen 17 mg/dL (9-16); Calcium 9.3 mg/dL (8.4-10.2); Carbon Dioxide 27 mmol/L (22-29); Chloride 101 mmol/L (96-108); Cholesterol 136 mg/dL (<200); Estimated Glomerular Filt Rate > 60; Glucose Fasting 177 mg/dL (60-99); HDL Cholesterol 62 mg/dL (>40); LDL Cholesterol Calculated 53 mg/dL (<100); Potassium 4.8 mmol/L (3.3-5.1); Sodium 135 mmol/L (135-145); Total Protein 7.7 g/dL (6.5-8.0); Triglycerides 106 mg/dL (<150)
[2024-05-16 10:59] LABS: Microalbumin Urine < 5.0 mg/L; Prostate Specific Antigen Scr 2.16 ng/mL (<0.05-4.0)
== END 2024-05-16 08:51 | disposition home or self-care (01) ==
LOC: HO.10HDL 08:50
PROVIDERS: Visit Provider Internal Medicine
DX: E11.9 Type 2 diabetes mellitus without complications (principal); I10 Essential (primary) hypertension; N40.0 Benign prostatic hyperplasia without lower urinary tract symptoms; Z12.5 Encounter for screening for malignant neoplasm of prostate
CPT/HCPCS: 36415; 80053; 80061; 82570; 83036; 84153; 85025

== ENCOUNTER 2024-05-24 11:21 | Outpatient (AMB) | payer MEDICARE, MEDICAID, SELFPAY ==
--- NOTE | 2024-05-24 11:37 | A.OFFPC_ITS ---
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 Required: No Accompanied by: Self / Same As Patient Allergies lisinopril Allergy (Intermediate, Verified 05/24/24 11:37) Cough sulfamethoxazole [From Bactrim] Allergy (Mild, Verified 05/24/24 11:37) unknown trimethoprim [From Bactrim] Allergy (Mild, Verified 05/24/24 11:37) unknown Tobacco use date assessed: 05/24/24 Fall risk assessment: No Falls in past year Last assessed Fall Risk: 05/24/24 Dental Screening Dental Screen Date: 05/24/24 Did you have a dental visit in the last 12 months?: Yes Did you have a dental problem in the last 6 months where you did not have access to dental care?: No HPI HPI Comments History of Present Illness Details The patient is a 70 year old male with a past medical history of htn, diabetes, hyperlipidemia presenting for follow up. Last seen by pcp Dec DM on metformin. Recent A1C 8.2% up from 7%. Has been taking 750mg metformin in am 1/2 in pm. Dietary indiscretion lately. UTD eye exam per patient CV: On amlodipine, simvastatin, irbesartan. Denies chest pain, dyspnea Left hip pain increased. Does a lot of walking as he is not driving ROS see HPI PHYSICAL EXAM: GENERAL: Alert and oriented x 3. NAD EYES: EOMI. Anicteric. HENT: Moist mucous membranes. No scleral icterus. No cervical lymphadenopathy. LUNGS: Clear to auscultation bilaterally. CARDIOVASCULAR: Regular rate and rhythm. No murmur. No JVD. ABDOMEN: Soft, non-tender +bs EXTREMITIES: No edema. Non-tender. SKIN: No rashes or lesions. Warm. NEUROLOGIC: No focal neurological deficits. CN II-XII grossly intact PSYCHIATRIC: Cooperative. Appropriate mood and affect [facility] Medical History Hip pain, left Pulmonary nodules/lesions, multiple Infiltrate noted on imaging study Bronchiectasis Family History Mother Heart attack COPD (chronic obstructive pulmonary disease) Father Pneumonia Social History Housing: House Alcohol intake: current Alcohol intake frequency: does not drink Patient Tobacco Use Status: Never used Tobacco service: No Current occupational status: retired and disabled Cognitive needs: No Hearing needs: Yes (b/l hearing aids ) Vision needs: Yes (rx glasses) Questionnaire PHQ-9 Over the last 2 weeks, how often have you been bothered by any of the following problems? 1. Little interest or pleasure in doing things: not at all 2. Feeling down, depressed, or hopeless: not at all 3. Trouble falling or staying asleep, or sleeping too much: not at all 4. Feeling tired or having little energy: not at all 5. Poor appetite or overeating: not at all 6. Feeling bad about yourself - or that you are a failure or have let yourself or your family down: not at all 7. Trouble concentrating on things, such as reading the newspaper or watching television: not at all 8. Moving or speaking so slowly that other people could have noticed. Or the opposite - being so fidgety or restless that you have been moving around a lot more than usual: not at all 9. Thoughts that you would be better off or of hurting yourself in some way: not at all Total score: 0 Source: Developed by Drs. Denis Patricia, Paula Gu, Domo Corral and colleagues, with an educational lazaro from [employer]. Thrive Questionnaire Date Thrive assessed: 05/24/24 I am a: Patient What is your living situation today?: I have a steady place to live Within the past 12 months, did the food you bought not last and you didn't have the money to get more?: Never true Within the past 12 months, did you worry whether your food would run out before you got money to buy more?: Never true Do you have trouble paying for medicines?: No Do you have trouble getting transportation to medical appointments?: No Do you have trouble paying your heating and electricity bill?: No Do you have trouble taking care of your child, family member or friend?: No Do you have trouble with day-to-day activities such as bathing, preparing meals, shopping, managing finances, etc.?: No Are you currently unemployed and looking for a job?: No Are you interested in more education?: No Please select the resources that you would like help with: None THRIVE Score: 0 AUDIT C Alcohol Use Questionnaire (AUDIT-C) 1. How often do you have a drink containing alcohol?: Never 3. How often do you have six or more drinks on one occasion?: Never Total Score: 0 CASA-7 AMB Questionnaire CASA-7 Date CASA - 7 assessed: 05/24/24 Feeling nervous, anxious, or on edge: 1 = Several days Not being able to stop or control worryin = Several days Worrying too much about different things: 1 = Several days Trouble relaxin = Not at all Being so restless that it is hard to sit still: 0 = Not at all Becoming easily annoyed or irritable: 0 = Not at all Feeling afraid as if something awful might happen: 1 = Several days Total CASA-7 score (0-4 normal; 5-9 mild; 10-14 moderate; 15-21 severe): 4 Source: Developed by Drs. Denis Patricia, Paula Gu, Domo Corral and colleagues, with an educational lazaro from [employer]. Physical exam (Primary Care) Vital Signs: Last Vital Signs Temp 97.6 F 05/24/24 11:44 Pulse 94 05/24/24 11:44 Resp 14 05/24/24 11:44 BP 136/70 05/24/24 11:44 Pulse Ox 97 05/24/24 11:44 Oxygen Delivery Method Room Air 05/24/24 11:44 BMI result Body Mass Index 28.3 Tobacco/Smoking Status: Tobacco use Status Tobacco use date assessed 05/24/24 05/24/24 11:39 Patient Tobacco Use Status Never used Tobacco 05/24/24 11:50 PHQ-9: PHQ-9 Score PHQ-9: Total score 0 05/24/24 11:56 Thrive Assessment: Date of Thrive Assessment Date Thrive assessed 05/24/24 05/24/24 11:39 Coding Level of Care Code New Pt Level 4 (09649) Diagnoses Type 2 diabetes mellitus with hyperglycemia, without long-term current use of insulin E11.65 Diabetes mellitus type: type 2 Diabetes mellitus penitentiary insulin use: without long lines operator use Diabetes mellitus complication status: with hyperglycemia Hip pain, left M25.552 Assessment & Plan Assessment & Plan (1) Diabetes mellitus: Code(s): E11.9 - Type 2 diabetes mellitus without complications Category: Medical Qualifiers: Diabetes mellitus type: type 2 Diabetes mellitus penitentiary insulin use: without penitentiary use Diabetes mellitus complication status: with hyperglycemia Qualified Code(s): E11.65 - Type 2 diabetes mellitus with hyperglycemia (2) Hip pain, left: Code(s): M25.552 - Pain in left hip Category: Medical Plan 70 to establish care. Past medical, surgical, social and family history reviewed meds reconciled DM suboptimal increase metformin to whole pill BID Return in 3 months Orders: Orders Comprehensive Met. Panel 3 Months E11.9 - Type 2 diabetes mellitus without complications Hemoglobin A1c 3 Months E11.9 - Type 2 diabetes mellitus without complications Referrals Gastroenterology Referral Z12.11 - Encounter for screening for malignant neoplasm of colon, Z80.0 - Family history of malignant neoplasm of digestive or ruby Orthopedics Referral M25.552 - Pain in left hip Medications: New amlodipine (Norvasc) 5 mg PO DAILY 90 tabs 3RF irbesartan 150 mg PO DAILY 90 tabs 3RF lorazepam 0.5 mg PO DAILY PRN 60 tabs 3RF anxiety simvastatin 40 mg PO DAILY 90 tabs 3RF bupropion HCl XL (Wellbutrin XL) 300 mg PO QAM 90 tabs 3RF mirtazapine 15 mg PO DAILY 90 tabs 3RF Changed From metformin ER 1 am and 1/2 pm 750 mg PO DAILY To metformin ER 750 mg PO BID 180 tabs 3RF
[2024-05-24 11:44] VITALS: BP 136/70; PULSE 94; RESP 14; TEMP 36.4; O2SAT 97; BMI 28.3
== END 2024-05-24 12:39 | disposition home or self-care (01) ==
LOC: HO.HMCHD 11:21
PROVIDERS: PCP Internal Medicine; Visit Provider Internal Medicine
DX: E11.65 Type 2 diabetes mellitus with hyperglycemia (principal); M25.552 Pain in left hip

== ENCOUNTER → 2024-05-24 | Outpatient (BNVA) | payer MEDICARE, MEDICAID, SELFPAY | PROVIDERS: PCP Internal Medicine; Visit Provider Internal Medicine | DX: E11.65 Type 2 diabetes mellitus with hyperglycemia (principal); M25.552 Pain in left hip; I10 Essential (primary) hypertension; Z79.84 Long term (current) use of oral hypoglycemic drugs; Z79.899 Other long term (current) drug therapy | CPT/HCPCS: 96127; 99202 ==

== ENCOUNTER 2024-07-11 12:19 | Outpatient (REF) | payer MEDICARE, MEDICAID, SELFPAY ==
--- NOTE | ~2024-07-11 | XR_ITS ---
EXAMINATION: XR HIP 2 OR MORE VIEWS LEFT HISTORY: M25.552 - Pain in left hip COMPARISON: There are no prior studies for comparison. FINDINGS: A single AP view of the pelvis and two views of the left hip are submitted. Osseous mineralization is normal. There is no fracture or dislocation. There is mild joint space narrowing. There is moderate degenerative disc disease of the lower lumbar spine. The soft tissues are unremarkable. XR/XR hip LT min 2V IMPRESSION: Moderate joint space narrowing. Electronically signed by: Denis French MD 07/11/2024 02:15 PM EDT
--- OUTSIDE RECORDS SUMMARY | 2024-07-15 12:45 | XMS_ITS | Clinical Summary ---
Author Organization 175 [facility] Address [address] [place] [address] Phone Care Team Providers Care Construction Scheduler Name Role Phone Radu Molina MD Primary Care Provider [phone] Allergies Active Allergy Reactions Criticality Noted Date [...] AM EDT Office Visit Orthopedic Surgery - [place] [address] [place] [phone] Gurwinder Bettencourt, DPM Primary osteoarthritis of both feet (Primary Dx); Diabetic mononeuropathy simplex (CMS/HCC V24, CMS/[facility] V28); Dermatophytosis of nail; Pain in toe [...] 2 wit h neurological manifestations (CMS/HCC V24, CMS/[facility] V28) 11/22/2017 DX:Diabetes mellitus type 2 with neurological manifestations (HCC) Fatty liver 07/02/2018 DX:Fatty liver Hearing loss, sensorineural 07/02/2018 DX:H earing loss, sensorineural Hyperlipidemia 11/22/2017 DX:Hyperlipidemi a Hypertension 11/22/2017 DX:Hypertension Peripheral neuropathy 07/02/2018 DX:Periphe ral neuropathy Family History Medical History Relation Name Comments Hypertension Father hip fx, CAP, ma cular degeneration age 85 COPD Mother colon polyps/re section, [place], stroke, HTN age 71 Relation Name Status [...] AM EDT Office Visit Orthopedic Surgery - [place] [address] [phone] Gurwinder Bettencourt, DPM [address] [address] Health Maintenance Due Date Last Done Comments [...] Insurance [place]ICA[place] - [place] MEDICARE Care Teams Construction Scheduler Relationship Specialty Start Date End Date Radu Molina MD [address] [place] [address] Dr Nate [place] PCP - General Internal Medicine 12/25/23
--- OUTSIDE RECORDS SUMMARY | 2024-07-15 12:45 | XMS_ITS | Clinical Summary ---
Author Organization [employer] Address [address] [facility] 7t [place] [address] Care Team Providers Care Pre Billing Clinician Name Role Phone Unavailable Primary Care Provider [...] patient's age to complete this topic Insurance [facility] STAND ADULT
--- OUTSIDE RECORDS SUMMARY | 2024-07-15 12:45 | XMS_ITS | Encounter Summary ---
Author Organization [employer] Address 75 [facility] 7t [place] [address] Care Team Providers Care Record Label Internship Name Role Phone Unavailable Primary Care Provider Unavailabl e Encounter Details Date Type Department Care Team (Late st Contact Info) Description 01/09/2024 Telephone [facility] ADULT DENTAL [address] [place] [address] Otto Bernabe, CORINNA [address] [place] [address] Social History Tobacco Use Types Packs/Day Years [...]
== END 2024-07-11 12:20 | disposition home or self-care (01) ==
LOC: HO.HOSX 12:19
PROVIDERS: Visit Provider Physician Assistant
DX: M16.12 Unilateral primary osteoarthritis, left hip (principal)
CPT/HCPCS: 73502; 99202

== ENCOUNTER 2024-07-11 12:33 | Outpatient (AMB) | payer MEDICARE, MEDICAID, SELFPAY ==
[2024-07-11 13:09] VITALS: BMI 28.3
--- NOTE | 2024-07-11 13:09 | MHC.OFFVIS ---
Vital Signs 07/11/24 13:09 Height 5 ft 8 in Weight 186 lb BMI 28.3 Intake Visit Reasons: Newprob- Pain in left hip Intake Note: Prosper is a 70 year old male who presents today for an evaluation of left hip pain. Patient was seen by his PCP due to increased hip pain and was referred to orthopedics. Patient reports pain started over a year ago, patient stated he has sciatica pain but doesn't feel like that. States the pain is like an aching pain with association with walking/moving. He take at time acetaminophen but does really help does not keep him up at night. Allergies lisinopril Allergy (Intermediate, Verified 07/11/24 13:14) Cough sulfamethoxazole [From Bactrim] Allergy (Mild, Verified 07/11/24 13:14) unknown trimethoprim [From Bactrim] Allergy (Mild, Verified 07/11/24 13:14) unknown Medication List - Last Reconciled 07/11/24 by Domenica Clay PA-C amlodipine (Norvasc) 5 mg PO DAILY aspirin (Adult Aspirin Regimen) 81 mg PO DAILY bupropion HCl XL (Wellbutrin XL) 300 mg PO QAM irbesartan 150 mg PO DAILY lorazepam 0.5 mg PO DAILY PRN metformin ER 750 mg PO BID mirtazapine 15 mg PO DAILY simvastatin 40 mg PO DAILY HPI HPI Newprob- Pain in left hip: Details: 70 yo male presents to the office today for his left hip pain. He states the pain has been present for over a year. he states he has to walk about 2 miles 3x a week and at the end of his walk he will be hunched over. He has to use a shopping cart while at the grocery store for ambulation. [facility] Medical History Hip pain, left Pulmonary nodules/lesions, multiple Infiltrate noted on imaging study Bronchiectasis Family History Mother Heart attack COPD (chronic obstructive pulmonary disease) Father Pneumonia Social History Housing: House Alcohol intake: current Alcohol intake frequency: does not drink Patient Tobacco Use Status: Never used Tobacco service: No Current occupational status: retired and disabled Cognitive needs: No Hearing needs: Yes (b/l hearing aids ) Vision needs: Yes (rx glasses) Review of Systems Const All systems reviewed & are unremarkable except as noted in HPI and below Physical Exam Vital Signs: BMI result Body Mass Index 28.3 Extrem Other: Left hip is normal to inspection. No pain with hip flexion or range of motion. No tenderness over the greater trochanteric bursa. He has full range of motion of the knee. Neurovascularly intact. Results Reviewed Results Reviewed: X-rays of the left hip obtained in the office today and reviewed by me show moderate arthritis Assessment & Plan Assessment & Plan (1) Osteoarthritis of left hip: Code(s): M16.12 - Unilateral primary osteoarthritis, left hip Category: Medical Qualifiers: Osteoarthritis type: primary Qualified Code(s): M16.12 - Unilateral primary osteoarthritis, left hip Plan: I had a lengthy discussion with the patient about the extent of his arthritis. He does not seem to be significantly debilitated by the arthritis therefore I recommend a course of physical therapy to work on strengthening exercises along with gait training. I encouraged him to contact our office in 8 weeks if he continues to have pain and he can meet with Dr. Dozier to discuss whether or not surgical intervention is warranted. Patient was content with this plan. All questions were answered and he will follow up as needed. Orders: Orders XR hip LT min 2V Today M25.552 - Pain in left hip PT Evaluation and Treatment Today M16.12 - Unilateral primary osteoarthritis, left hip Coding Level of Care Code New Pt Level 3 (79110) Complex EM visit Add On G2211 Diagnoses Primary osteoarthritis of left hip M16.12 Osteoarthritis type: primary
--- OUTSIDE RECORDS SUMMARY | 2024-07-11 13:16 | XMS_ITS | Encounter Summary ---
Author Organization [employer] Address [address] [place] [address] Care Team Providers Care Bench Scientist Name Role Phone Unavailable Primary Care Provider Unavailabl e Encounter Details Date Type Department Care Team (Late st Contact Info) Description 01/09/2024 Telephone [facility] [address] [place] [address] Otto Bernabe, CORINNA [address] [place] [address] Social History Tobacco Use Types Packs/Day Years Used Date Smoking Tobacco: Never Smokeless Tobacco: Never Alcohol Use Standard Drinks/Week Comments Never 0 (1 standard drink = 0.6 oz pur e alcohol) Sex and Gender Information Value Date Recorded Sex Assigned at Male 04/20/2022 10:21 AM EST Legal Sex Male 9:58 AM EST Gender Identity Male 04/20/2022 10:21 AM EST Sexual Orientation Straight 04/20/2022 10 :21 AM EST documented as of this encounter Miscellaneous Notes * Telephone Encounter - Vivian Ortiz - 01/09/2024 2:26 PM EST Patient needs more medicine his out pain medication and only has 3 antibiotics left he says pains worst than before . documented in this encounter Plan of Treatment Not on file documented as of this encounter Visit Diagnoses Not on filedocumented in this encounter
--- OUTSIDE RECORDS SUMMARY | 2024-07-11 13:16 | XMS_ITS | Clinical Summary ---
Author Organization 175 [facility] Address [address] [place] [address] Phone Care Team Providers Care Aircraft Engine Mechanic Name Role Phone Radu Molina MD Primary Care Provider [phone] Allergies Active Allergy Reactions Criticality Noted Date Comments Lisinopril Cough 11/22/2017 Oxycodone 01/11/2024 Makes me dizzy Sulfamethoxazole-Trimethopr im Rash Low 07/02/2018 Other Reaction(s): Rash/Dermatitis Medications MULTIVITAMIN ORAL Take by mouth daily. Active amLODIPine (NORVASC) 5 mg tablet Take 5 mg by mouth daily. Active aspirin 81 mg EC tablet Take 81 mg by mouth daily. Active buPROPion XL (WELLBUTRIN XL) 300 mg 24 hr tablet Take 300 mg by mouth every morning. Active irbesartan (AVAPRO) 150 mg tablet Take 150 mg by mouth daily. Active LORazepam (ATIVAN) 0.5 mg tablet Take 0.5 mg by mouth daily as needed. Active metFORMIN XR (GLUCOPHAGE-XR) 750 mg 24 hr tablet Take 1,500 mg by mouth daily (with breakfast). Active mirtazapine (REMERON) 7.5 mg tablet Take 7.5 mg by mouth at bedtime. Active simvastatin (ZOCOR) 40 mg tablet Take 1 tablet (40 mg total) by mouth at bedtime. Active ammonium lactate (LAC-HYDRIN) 12 % lotion Apply to both feet daily. 02/21/2018 Active amoxicillin (AMOXIL) 500 mg capsule take 1 capsule (500 mg) by mouth every 8 hours for 7 days 01/03/2024 Active ibuprofen (ADVIL,MOTRIN) 600 mg tablet TAKE 1 TABLET (600 MG) BY MOUTH EVERY 6 (SIX) HOURS IF NEEDED FOR MILD PAIN FOR UP TO 10 DAYS. 01/03/2024 Active Active Problems Problem Noted Date Diagnosed Date Cardiac murmur 07/02/2018 Fatty liver 07/02/2018 Hearing loss, sensorineural 07/02/2018 Peripheral neuropathy 07/02/2018 Anxiety 11/22/2017 Diabetes mellitus type 2 wit h neurological manifestations (CMS/HCC V24, CMS/HCC V28) 11/22/2017 Hyperlipidemia 11/22/2017 Hypertension 11/22/2017 Encounters Date Type Department Care Team Description 05/08/2024 10:15 AM EDT Office Visit Orthopedic Surgery - [place] [address] [place] [phone] Gurwinder Bettencourt, DPM Primary osteoarthritis of both feet (Primary Dx); Diabetic mononeuropathy simplex (CMS/HCC V24, CMS/[facility] V28); Dermatophytosis of nail; Pain in toe of right foot; Pain in toe of left foot from Last 3 Months Surgical History Surgery Date Site/Laterality Comments COLONOSCOPY 01/19/2009 PROCEDURE: HISTORICAL COLONOSCOPY COLONOSCOPY 02/14/2014 PROCEDURE: HISTORICAL COLONOSCOPY; COMMENT: polyp, repeat 5 year OTHER SURGICAL HISTORY PROCEDURE: HISTORY OTHER; COMMENT: oral surgery OTHER SURGICAL HISTORY PROCEDURE: HISTORY OTHER; COMMENT: liver biopsy 12/1990, Dr Garcia Medical History Medical History Date Comments Anxiety 11/22/2017 DX:Anxiety Cardiac murmur 07/02/2018 DX:Cardiac murmu r Diabetes mellitus type 2 wit h neurological manifestations (CMS/HCC V24, CMS/[facility] V28) 11/22/2017 DX:Diabetes mellitus type 2 with neurological manifestations (HCC) Fatty liver 07/02/2018 DX:Fatty liver Hearing loss, sensorineural 07/02/2018 DX:H earing loss, sensorineural Hyperlipidemia 11/22/2017 DX:Hyperlipidemi a Hypertension 11/22/2017 DX:Hypertension Peripheral neuropathy 07/02/2018 DX:Periphe ral neuropathy Family History Medical History Relation Name Comments Hypertension Father hip fx, CAP, ma cular degeneration age 85 COPD Mother colon polyps/re section, [place], stroke, HTN age 71 Relation Name Status Comments Father Mother Social History Tobacco Use Types Packs/Day Years Used Date Smoking Tobacco: Never Smokeless Tobacco: Never Alcohol Use Standard Drinks/Week Comments No 0 (1 standard drink = 0.6 oz pur e alcohol) Sex and Gender Information Value Date Recorded Sex Assigned at Not on file Legal Sex Male 4:58 PM EST Gender Identity Not on file Sexual Orientation Not on file Obstetrics History Last Filed Vital Signs Vital Sign Reading Time Taken Comments Blood Pressure - - Pulse - - Temperature - - Respiratory Rate - - Oxygen Saturation - - Inhaled Oxygen Concentration - - Weight 81.2 kg (179 lb) 05/08/2024 9:59 AM EDT Height 172.7 cm (5' 7.99 ) 05/08/2024 9:59 AM ED T Body Mass Index 27.22 05/08/2024 9:59 AM EDT Plan of Treatment Upcoming Encounters Date Type Department Care Team (Late st Contact Info) Description 08/08/2024 9:45 AM EDT Office Visit Orthopedic Surgery - [place] [address] [phone] Gurwinder Bettencourt, DPM [address] [address] Health Maintenance Due Date Last Done Comments Diabetes: Annual GFR (Glomerular Filtration Rate) 03/18/1955 Diabetes: Annual Foot Exam 03/18/1965 Diabetes: Annual Retina Eye Exam 03/18/1965 Pneumococcal Vaccine: 50+ Years (1 of 2 - PCV) 03/18/1974 Cholesterol Screening (Lipid Panel) 10/23/2023 Colorectal Cancer Screening: Colonoscopy 10/23/2023 Depression Screening 10/23/2023 Diabetes: Annual Urine Albumin-Creatinine Ratio (uACR) 10/23/2023 Diabetes: Blood Sugar Control Test (HGBA1C) 10/23/2023 Falls Risk Assessment 10/23/2023 Hepatitis C Screening 10/23/2023 Hypertension/CHF/CAD Annual BMP Blood Test 10/23/2023 Medicare Annual Wellness Visit 10/23/2023 Social Influencers of Health Screening 10/23/2023 COVID-19 Vaccine ( season) 2024 11/24/2023, 01/26/2023, 01/08/2022, Additional history exists Influenza Vaccine (Season Ended) 2024 DTaP,Tdap,and Td Vaccines (2 - Td or Tdap) 03/24/2032 03/24/2022 Zoster Vaccines Completed 12/01/2017, 07/28, 07/08/2015 RSV Immunization Adult Patients Completed 02/08/2023 HIB Vaccines Aged Out No longer eligi ble based on patient's age to complete this topic HPV Vaccines Aged Out No longer eligi ble based on patient's age to complete this topic Hepatitis A Vaccines Aged Out No long er eligible based on patient's age to complete this topic Hepatitis B Vaccines Aged Out No long er eligible based on patient's age to complete this topic IPV Vaccines Aged Out No longer eligi ble based on patient's age to complete this topic MMR Vaccines Aged Out No longer eligi ble based on patient's age to complete this topic Meningococcal ACWY Vaccine Aged Out N o longer eligible based on patient's age to complete this topic Meningococcal B Vaccine Aged Out No l onger eligible based on patient's age to complete this topic RSV Immunization Patients Under 20 months Aged Out No longer eligible based on patient's age to complete this topic Varicella Vaccines Aged Out No longer eligible based on patient's age to complete this topic Insurance MEDICAID - [place] MEDICARE Care Teams Aircraft Engine Mechanic Relationship Specialty Start Date End Date Radu Molina MD [address] [place] [address] Dr Nate [place] PCP - General Internal Medicine 12/25/23
--- OUTSIDE RECORDS SUMMARY | 2024-07-11 13:16 | XMS_ITS | Clinical Summary ---
Author Organization [employer] Address 75 [facility] 7t [place] [address] Care Team Providers Care Special Education Tutor Name Role Phone Unavailable Primary Care Provider Unavailabl e Allergies Active Allergy Reactions Criticality Noted Date Comments Sulfamethoxazole-Trimethoprim Rash Low 2022 Lisinopril Cough 05/11/2022 Oxycodone 01/11/2024 Makes me dizzy Medications simvastatin (Zocor) 40 MG tablet Take 40 mg by mouth at bedtime. 10/26/2023 Active mirtazapine (Remeron) 15 MG tablet Take 15 mg by mouth at bedtime. 10/21/2023 Active metFORMIN XR (Glucophage-XR) 750 MG 24 hr tablet TAKE 1 AND 1/2 TABLETS BY MOUTH DAILY 11/03/2023 Active irbesartan (Avapro) 150 MG tablet Take 150 mg by mouth Once per day. 12/06/2023 Active buPROPion XL (Wellbutrin XL) 300 MG 24 hr tablet Take 300 mg by mouth in the morning. 11/23/2023 Active amLODIPine (Norvasc) 5 MG tablet Take 5 mg by mouth Once per day. 10/26/2023 Active LORazepam (Ativan) 0.5 MG tablet TAKE 1/2 TAB BY MOUTH EVERY MORNING - *DECREASE IN DOSE 09/09/2023 Active Social History Tobacco Use Types Packs/Day Years Used Date Smoking Tobacco: Never Smokeless Tobacco: Never Tobacco Cessation:Counseling Given: Not Answered Alcohol Use Standard Drinks/Week Comments Never 0 (1 standard drink = 0.6 oz pur e alcohol) Sex and Gender Information Value Date Recorded Sex Assigned at Male 04/20/2022 10:21 AM EST Legal Sex Male 9:58 AM EST Gender Identity Male 04/20/2022 10:21 AM EST Sexual Orientation Straight 04/20/2022 10 :21 AM EST Last Filed Vital Signs Vital Sign Reading Time Taken Comments Blood Pressure 132/72 01/11/2024 10:45 AM EST Pulse - - Temperature - - Respiratory Rate - - Oxygen Saturation - - Inhaled Oxygen Concentration - - Weight - - Height - - Body Mass Index - - Plan of Treatment Health Maintenance Due Date Last Done Comments CT Colonography 03/18/1955 Colonoscopy 03/18/1955 Colorectal Cancer Screening 03/18/1955 Dental Oral Exam 03/18/1955 Dental Prophylaxis 03/18/1955 Dental X-Ray: Bitewings 03/18/1955 Dental X-Ray: Full Mouth 03/18/1955 Depression Screening 03/18/1955 FIT DNA/Cologuard 03/18/1955 FIT 03/18/1955 FOBT 03/18/1955 Lipid Panel 03/18/1955 SDOH Screening 03/18/1955 Sigmoidoscopy 03/18/1955 Alcohol/Substance Use Screening 03/18/1967 Hepatitis C Screening 03/18/1973 Pneumococcal Vaccine: 50+ Years (1 of 1 - PCV) 03/18/2005 Influenza Vaccine (#1) 2023 COVID-19 Vaccine ( season) 2024 11/24/2023, 01/26/2023, 01/08/2022, Additional history exists Tobacco Screening 01/02/2025 01/03/2024 RSV Patients and Patients Aged 60 years or older (1 - 1-dose 75+ series) 03/18/2030 DTaP/Tdap/Td Vaccines (2 - Td or Tdap) 03/24/2032 03/24/2022 Zoster Vaccines Completed 12/01/2017, 07/28, 07/08/2015 HIB Vaccines Aged Out No longer eligi [...] patient's age to complete this topic Meningococcal Vaccine Aged Out No blayne hector eligible based on patient's age to complete this topic RSV under 20 months Aged Out No longe r eligible based on patient's age to complete this topic Rotavirus Vaccines Aged Out No longer eligible based on patient's age to complete this topic [facility] ST[facility]
== END 2024-07-11 13:42 | disposition home or self-care (01) ==
LOC: HO.HOS 12:34
PROVIDERS: PCP Internal Medicine; Visit Provider Physician Assistant
DX: M16.12 Unilateral primary osteoarthritis, left hip (principal)
CPT/HCPCS: 99203; G2211

== ENCOUNTER → 2024-07-11 12:36 | Outpatient (BNV) | payer MEDICARE, MEDICAID, SELFPAY | PROVIDERS: Visit Provider Radiology Diagnostic Radiology | DX: M25.552 Pain in left hip (principal) | CPT/HCPCS: 73502 ==

== ENCOUNTER 2024-08-13 09:23 | Outpatient (REF) | payer MEDICARE, MEDICAID, SELFPAY ==
[2024-08-13 09:59] LABS: Estimated Average Glucose 183 mg/dL
[2024-08-13 10:21] LABS: Alanine Aminotransferase 36 U/L (0-40); Albumin Level 4.3 g/dL (3.5-5.0); Alkaline Phosphatase 76 U/L (39-117); Anion Gap 9 (12-20); Aspartate Amino Transferase 38 U/L (5-37); Bilirubin Total 0.7 mg/dL (0.0-1.0); Blood Urea Nitrogen 15 mg/dL (9-16); Carbon Dioxide 26 mmol/L (22-29); Chloride 107 mmol/L (96-108); Estimated Glomerular Filt Rate > 60; Glucose Random 142 mg/dL (60-115); Potassium 4.4 mmol/L (3.3-5.1); Sodium 138 mmol/L (135-145)
== END 2024-08-13 09:24 | disposition home or self-care (01) ==
LOC: HO.10HDL 09:23
PROVIDERS: Visit Provider Internal Medicine
DX: E11.9 Type 2 diabetes mellitus without complications (principal)
CPT/HCPCS: 36415; 80053; 83036

== ENCOUNTER 2024-08-22 09:40 | Outpatient (AMB) | payer MEDICARE, MEDICAID, SELFPAY ==
[2024-08-22 08:59] VITALS: BP 122/70; PULSE 78; TEMP 36.5; O2SAT 98; BMI 27.4
--- NOTE | 2024-08-22 08:59 | A.OFFPC_ITS ---
Vital Signs 08/22/24 08:59 Height 5 ft 8 in Weight 180 lb BMI 27.4 BP 122/70 Blood Pressure Location Rt brachial Position Sitting Pulse 78 Pulse Source Pulse Oximeter Temp 97.7 F Temp Source Axillary Pulse Oximetry (%) 98 Oxygen Delivery Method Room Air Intake Visit Reasons: 3 Month F/U Product Manager Financial Services Required: No Accompanied by: Self / Same As Patient Allergies lisinopril Allergy (Intermediate, Verified 08/22/24 08:59) Cough sulfamethoxazole (From Bactrim) Allergy (Mild, Verified 08/22/24 08:59) unknown trimethoprim (From Bactrim) Allergy (Mild, Verified 08/22/24 08:59) unknown Tobacco use date assessed: 08/22/24 Fall risk assessment: No Falls in past year Last assessed Fall Risk: 08/22/24 Dental Screening Dental Screen Date: 08/22/24 Did you have a dental visit in the last 12 months?: Yes Did you have a dental problem in the last 6 months where you did not have access to dental care?: No HPI HPI Comments History of Present Illness Details The patient is a 70 year old male with a past medical history of htn, diabetes, hyperlipidemia presenting for follow up. DM: Recent A1C 8.0% from 8.2% up from 7%. Has been taking 750mg metformin twice daily. Improved . Lost six pounds eye exam per patient CV: On amlodipine, simvastatin, irbesartan. Denies chest pain, dyspnea Left hip pain increased. Does a lot of walking as he is not driving. He saw ortho and is going to PT Colonoscopy is scheduled ROS see HPI PHYSICAL EXAM: GENERAL: Alert and oriented x 3. NAD EYES: EOMI. Anicteric. HENT: Moist mucous membranes. No scleral icterus. No cervical lymphadenopathy. LUNGS: Clear to auscultation bilaterally. CARDIOVASCULAR: Regular rate and rhythm. No murmur. No JVD. ABDOMEN: Soft, non-tender +bs EXTREMITIES: No edema. Non-tender. SKIN: No rashes or lesions. Warm. NEUROLOGIC: No focal neurological deficits. CN II-XII grossly intact PSYCHIATRIC: Cooperative. Appropriate mood and affect [facility] Medical History Hip pain, left Pulmonary nodules/lesions, multiple Infiltrate noted on imaging study Bronchiectasis Family History Mother Heart attack COPD (chronic obstructive pulmonary disease) Father Pneumonia Social History Housing: House Alcohol intake: current Alcohol intake frequency: does not drink Patient Tobacco Use Status: Never used Tobacco e-Cigarette/Vaping Use: Never Used service: No Current occupational status: retired and disabled Cognitive needs: No Hearing needs: Yes (b/l hearing aids ) Vision needs: Yes (rx glasses) Questionnaire PHQ-9 Over the last 2 weeks, how often have you been bothered by any of the following problems? 1. Little interest or pleasure in doing things: not at all 2. Feeling down, depressed, or hopeless: not at all 3. Trouble falling or staying asleep, or sleeping too much: not at all 4. Feeling tired or having little energy: not at all 5. Poor appetite or overeating: not at all 6. Feeling bad about yourself - or that you are a failure or have let yourself or your family down: not at all 7. Trouble concentrating on things, such as reading the newspaper or watching television: not at all 8. Moving or speaking so slowly that other people could have noticed. Or the opposite - being so fidgety or restless that you have been moving around a lot more than usual: not at all 9. Thoughts that you would be better off or of hurting yourself in some way: not at all Total score: 0 Depression Screening Interpretation: Negative Depression Screening Done: Yes 26944 - PHQ-9 Billing: Yes Source: Developed by Drs. Denis Patricia, Paula Gu, Domo Corral and colleagues, with an educational lazaro from [employer]. Thrive Questionnaire Date Thrive assessed: 08/22/24 I am a: Patient Within the past 12 months, did the food you bought not last and you didn't have the money to get more?: Never true Within the past 12 months, did you worry whether your food would run out before you got money to buy more?: Never true Do you have trouble paying for medicines?: No Do you have trouble getting transportation to medical appointments?: No Do you have trouble paying your heating and electricity bill?: No Do you have trouble taking care of your child, family member or friend?: No Do you have trouble with day-to-day activities such as bathing, preparing meals, shopping, managing finances, etc.?: No Are you currently unemployed and looking for a job?: No Are you interested in more education?: No THRIVE Score: 0 AUDIT C Alcohol Use Questionnaire (AUDIT-C) 1. How often do you have a drink containing alcohol?: Never 3. How often do you have six or more drinks on one occasion?: Never Total Score: 0 CASA-7 AMB Questionnaire CASA-7 Date CASA - 7 assessed: 08/22/24 Feeling nervous, anxious, or on edge: 3 = Nearly every day Not being able to stop or control worryin = Not at all Worrying too much about different things: 0 = Not at all Trouble relaxin = Not at all Being so restless that it is hard to sit still: 0 = Not at all Becoming easily annoyed or irritable: 0 = Not at all Feeling afraid as if something awful might happen: 0 = Not at all Total CASA-7 score (0-4 normal; 5-9 mild; 10-14 moderate; 15-21 severe): 3 Source: Developed by Drs. Denis Patricia, Palua Gu, Domo Corral and colleagues, with an educational lazaro from [employer]. Physical exam (Primary Care) Vital Signs: Last Vital Signs Temp 97.7 F 08/22/24 08:59 Pulse 78 08/22/24 08:59 BP 122/70 08/22/24 08:59 Pulse Ox 98 08/22/24 08:59 Oxygen Delivery Method Room Air 08/22/24 08:59 BMI result Body Mass Index 27.4 Tobacco/Smoking Status: Tobacco use Status Tobacco use date assessed 08/22/24 08/22/24 09:00 Patient Tobacco Use Status Never used Tobacco 08/22/24 09:00 e-Cigarette/Vaping Use Never Used 08/22/24 09:00 PHQ-9: PHQ-9 Score PHQ-9: Total score 0 08/22/24 10:07 Depression Screening Interpretation: Negative Thrive Assessment: Date of Thrive Assessment Date Thrive assessed 08/22/24 08/22/24 09:00 Coding Level of Care Code Est Pt Level 4 (15523) Diagnoses Type 2 diabetes mellitus with hyperglycemia, without long-term current use of insulin E11.65 Diabetes mellitus type: type 2 Diabetes mellitus [facility] insulin use: without long wall shear operator use Diabetes mellitus complication status: with hyperglycemia Primary hypertension I10 Hypertension type: primary hypertension Additional Codes PHQ-9 - 51289 - PHQ-9 Billing: Yes ([id number]) Assessment & Plan Assessment & Plan (1) Diabetes mellitus: Code(s): E11.9 - Type 2 diabetes mellitus without complications Category: Medical Qualifiers: Diabetes mellitus type: type 2 Diabetes mellitus long wall shear operator insulin use: without long wall shear operator use Diabetes mellitus complication status: with hyperglycemia Qualified Code(s): E11.65 - Type 2 diabetes mellitus with hyperglycemia (2) Hypertension: Code(s): I10 - Essential (primary) hypertension Category: Medical Qualifiers: Hypertension type: primary hypertension Qualified Code(s): I10 - Essential (primary) hypertension Plan Type 2 diabetes-suboptimal but improving glycemic control HTN-well controlled on current medication Lorazepam script changed to what he is taking just 1/2 tab not one tab colonoscopy scheduled Orders: Orders Comprehensive Met. Panel 3 Months E11.65 - Type 2 diabetes mellitus with hyperglycemia Lipid Panel 3 Months E11.65 - Type 2 diabetes mellitus with hyperglycemia Complete Blood Count Auto Diff 3 Months E11.65 - Type 2 diabetes mellitus with hyperglycemia Microalbumin, Random (w Creat) 3 Months E11.65 - Type 2 diabetes mellitus with hyperglycemia Medications: New metformin 1,000 mg PO BID 180 tabs 3RF Changed 2 From lorazepam 0.5 mg PO DAILY PRN 60 tabs 3RF anxiety To lorazepam 0.25 mg (1/2 x 0.5 mg) PO DAILY PRN 15 tabs 3RF anxiety Discontinued metformin ER Discontinued Reason: Doctor's Order 750 mg PO BID 180 tabs 3RF
--- OUTSIDE RECORDS SUMMARY | 2024-08-22 10:49 | XMS_ITS | Clinical Summary ---
Author Organization [employer] Address [address] [facility] 7[address] [place] [address] Care Team Providers Care Digital Media Intern Name Role Phone Unavailable Primary Care Provider [...] Years (1 of 1 - PCV) 03/18/2005 COVID-19 Vaccine ( - season) 2024 11/24/2023, 01/26/2023, 01/08/2022, Additional history exists Influenza Vaccine (Season Ended) 2024 Tobacco Screening 01/02/2025 01/03/2024 DTaP/Tdap/Td Vaccines (2 - Td or Tdap) 03/24/2032 03/24/2022 Zoster Vaccines Completed 12/01/2017, 07/28, 07/08/2015 RSV Patients and Patients Aged 60 years or older Completed 02/08/2023 HIB Vaccines Aged Out No [...] patient's age to complete this topic Insurance [facility] MEDICAID STAND ADULT
== END 2024-08-22 10:32 | disposition home or self-care (01) ==
LOC: HO.HMCHD 09:41
PROVIDERS: PCP Internal Medicine; Visit Provider Internal Medicine
DX: E11.65 Type 2 diabetes mellitus with hyperglycemia (principal); I10 Essential (primary) hypertension

== ENCOUNTER → 2024-08-22 09:40 | Outpatient (BNVA) | payer MEDICARE, MEDICAID, SELFPAY | PROVIDERS: PCP Internal Medicine; Visit Provider Internal Medicine | DX: E11.65 Type 2 diabetes mellitus with hyperglycemia (principal); I10 Essential (primary) hypertension; E78.5 Hyperlipidemia, unspecified; M25.552 Pain in left hip; Z79.84 Long term (current) use of oral hypoglycemic drugs; Z79.899 Other long term (current) drug therapy; Z13.31 Encounter for screening for depression; Z13.30 Encounter for screening examination for mental health and behavioral disorders, unspecified | CPT/HCPCS: 96127; 99212 ==

== ENCOUNTER 2024-08-23 08:23 | Outpatient (AMB) | payer MEDICARE, MEDICAID, SELFPAY ==
--- NOTE | 2024-08-23 08:33 | A.OFFVIS_ITS ---
Vital Signs 08/23/24 08:53 Height 5 ft 8 in Weight 180 lb BMI 27.4 BP 100/56 L Blood Pressure Location Lt brachial Position Sitting Pulse 72 Pulse Oximetry (%) 97 Oxygen Delivery Method Room Air Intake Visit Reasons: Colonoscopy Screening Intake Note: Patient new consult for 3/4 pre Colonoscopy screening. Patient denies any GI issues. Patient have couples of Colonoscopy in the pass at different Hospital more than 5 yrs ago/no records. Patient said last Colonoscopy they found internal hemorrhoids/no polyps and they are doing his Colonoscopy every 5 yrs due Family hx of colon Cancer. Instructor Decorating Required: No Accompanied by: Self / Same As Patient Allergies lisinopril Allergy (Intermediate, Verified 08/23/24 08:33) Cough sulfamethoxazole (From Bactrim) Allergy (Mild, Verified 08/23/24 08:33) unknown trimethoprim (From Bactrim) Allergy (Mild, Verified 08/23/24 08:33) unknown Medication List - Last Reconciled 08/23/24 by Radha Short CNP amlodipine (Norvasc) 5 mg PO DAILY aspirin (Adult Aspirin Regimen) 81 mg PO DAILY bisacodyl 5 mg PO ONCE 1 day bupropion HCl XL (Wellbutrin XL) 300 mg PO QAM irbesartan 150 mg PO DAILY lorazepam 0.25 mg (1/2 x 0.5 mg) PO DAILY PRN metformin 1,000 mg PO BID mirtazapine 15 mg PO DAILY polyethylene glycol 3350 (Miralax) 238 grams PO ONCE simvastatin 40 mg PO DAILY HPI HPI Colonoscopy Screening: Details: Patient is a 70-year-old male with PMH of HTN, HLD, DMII, depression and anxiety. Referred by PCP for pre colonoscopy screening. He had his last colonoscopy in February 2019, performed by Dr. Balbuena [facility] G[facility]herley Cheng does not experience any blood in his stools, abdominal pain, or nausea and vomiting. However, he reports his stools are somewhat hard, and he thinks he might benefit from a stool softener. He only occasionally experiences heartburn, which does not last long and resolves on its own. He mentions no issues with swallowing daily foods and liquids, though he sometimes has to cut large pills into quarters. Patient denies: fever/chills, appetite changes, regurgitation, dysphasia, unintentional wt loss or melena/hematochezia. Social History Diet: No specific dietary restrictions mentioned; generally adheres to OTC remedies for constipation. Alcohol/Tobacco/Drug Use: Does not consume alcohol, has never smoked or used drugs. - family hx as below -denies personal hx of CA -denies significant cardiopulmonary history -tolerated anesthesia in the past denies difficulty. [facility] Medical History (Updated 08/23/24 @ 09:28 by Radha Short CNP) Constipation Anemia Hip pain, left Pulmonary nodules/lesions, multiple Infiltrate noted on imaging study Bronchiectasis Family History (Updated 08/23/24 @ 09:15 by Radha Short CNP) Mother Heart attack COPD (chronic obstructive pulmonary disease) Colonic disease Father Pneumonia Social History Housing: House Alcohol intake: current Alcohol intake frequency: does not drink Patient Tobacco Use Status: Never used Tobacco e-Cigarette/Vaping Use: Never Used service: No Current occupational status: retired and disabled Cognitive needs: No Hearing needs: Yes (b/l hearing aids ) Vision needs: Yes (rx glasses) Review of Systems Const Reports as per HPI ENT Reports as per HPI Card Reports as per HPI Resp Reports as per HPI GI Reports as per HPI Reports as per HPI Physical Exam Vital Signs: Last Vital Signs Pulse 72 08/23/24 08:53 BP 100/56 L 08/23/24 08:53 Pulse Ox 97 08/23/24 08:53 Oxygen Delivery Method Room Air 08/23/24 08:53 BMI result Body Mass Index 27.4 Const General: healthy appearing, no acute distress and well developed Nutritional Appearance: well nourished Orientation/consciousness: patient oriented x3 HEENT Head: Yes normal to inspection, Yes normocephalic and Yes atraumatic Face and sinus: Yes normal facial exam Eyes General: appearance normal, both eyes and all related structures Neck Neck: Yes normal visual inspection Resp Effort & Inspection: normal respiratory effort, able to speak in complete sentences, no tracheal deviation and symmetric chest movement Auscultation: clear to auscultation bilaterally Cardio Jugular venous distension: no JVD Rate: regular rate Rhythm: regular rhythm Heart sounds: S1 normal heart sound present, S2 normal heart sound present, no gallops and no murmurs GI Inspection: Yes normal to inspection and No distended Palpation (GI): Soft to palpation, not firm, nontender and No hepatosplenomegaly present Auscultation: normal bowel sounds Neuro General: patient oriented x3 Gait exam (Neuro): Normal gait present Psych Appearance: grossly normal Mental Status: mental status grossly normal Speech and movement: Normal speech and movement present Affect: normal affect Attitude: cooperative Thought process: Normal thought process present Thought content: Normal thought content present Insight: Fair insight present (Psych) Judgement: Good judgement present (Psych) Assessment & Plan Assessment & Plan (1) Colon cancer screening: Code(s): Z12.11 - Encounter for screening for malignant neoplasm of colon Category: Medical Plan: Due for colonoscopy screening. Last completed in 2019 through outside facility, normal per patient. Questionable FDR with CRC VS polyp Medications: -prescriptions for laxative tablets and MiraLax sent to pharmacy; instructions for Gatorade purchase and clear liquid diet given. - understands diabetes medications and ASA will need to be held days prior to procedure. Nurse to review med holds per protocol. - Use Tylenol if needed for pain. Patient educated on scheduling process, procedure preparation, including avoiding certain foods and ensuring clear liquid intake Advised on necessity for ride post-procedure due to sedation. (2) Anemia: Code(s): D64.9 - Anemia, unspecified Category: Medical Qualifiers: Anemia type: unspecified type Qualified Code(s): D64.9 - Anemia, unspecified (3) Constipation: Code(s): K59.00 - Constipation, unspecified Category: Medical Qualifiers: Constipation type: unspecified constipation type Qualified Code(s): K59.00 - Constipation, unspecified Plan: occasional hard stools Additional Tests: Check thyroid levels and iron levels. Medications: Declined need for prescription pharmacological management. Recommended OTC stool softeners, if needed. Reinforced lifestyle modifications to promote regularity: -higher fiber diet, examples provided -adequate hydration with water -150 minutes of moderate intensity exercise per week Plan Follow-up after colonoscopy or sooner as needed Time: I spent a total of 45 minutes on the date of encounter which includes: Preparing to see the patient (reviewed previous documentation, test results and medical history) Performing a medically appropriate exam and/or evaluation Ordering medications, tests, and procedures Documenting clinical information in the health record Orders: Orders Comprehensive [place]. Panel Fast Today E11.65 - Type 2 diabetes mellitus with hyperglycemia IRON PROFILE Today D64.9 - Anemia, unspecified TSH reflex Free T4 Today K59.00 - Constipation, unspecified Medications: New polyethylene glycol 3350 (Miralax) per colonoscopy prep instructions 238 grams PO ONCE 238 grams 0RF bisacodyl Take four tablets once for 1 day per colonoscopy instructions 5 mg PO ONCE 4 tabs 0RF 1 day Coding Level of Care Code New Pt New Pt Level 4 (13650) Patient Type New Diagnoses Colon cancer screening Z12.11 Anemia, unspecified type D64.9 Anemia type: unspecified type Constipation, unspecified constipation type K59.00 Constipation type: unspecified constipation type
--- OUTSIDE RECORDS SUMMARY | 2024-08-23 08:33 | XMS_ITS | Clinical Summary ---
Author Organization [employer] Address [address] [facility] 7t [place] [address] Care Team Providers Care Lens Block Gauger Name Role Phone Unavailable Primary Care Provider [...]
[2024-08-23 08:53] VITALS: BP 100/56; PULSE 72; O2SAT 97; BMI 27.4
== END 2024-08-23 09:28 | disposition home or self-care (01) ==
LOC: HO.HGI 08:24
PROVIDERS: PCP Internal Medicine; Visit Provider Nurse Practitioner Family
DX: Z12.11 Encounter for screening for malignant neoplasm of colon (principal); D64.9 Anemia, unspecified; K59.00 Constipation, unspecified
CPT/HCPCS: 99024

== ENCOUNTER → 2024-08-23 08:23 | Outpatient (BNVA) | payer MEDICARE, MEDICAID, SELFPAY | PROVIDERS: PCP Internal Medicine; Visit Provider Nurse Practitioner Family | DX: Z12.11 Encounter for screening for malignant neoplasm of colon (principal); D64.9 Anemia, unspecified; K59.00 Constipation, unspecified | CPT/HCPCS: 99212 ==

== ENCOUNTER 2024-08-27 08:16 | Outpatient (REF) | payer MEDICARE, MEDICAID, SELFPAY ==
--- OUTSIDE RECORDS SUMMARY | 2024-08-27 08:20 | XMS_ITS | Clinical Summary ---
Author Organization [employer] Address [address] [facility] 7t [place] [address] Care Team Providers Care Planning Feeder Name Role Phone Unavailable Primary Care Provider [...]
--- OUTSIDE RECORDS SUMMARY | 2024-08-27 08:20 | XMS_ITS | Clinical Summary ---
Author Organization 175 [facility] Address [address] [place] [address] Phone Care Team Providers Care Mixed Crop And Livestock Farm Worker Name Role Phone Radu Molina MD Primary Care Provider [phone] Allergies Active Allergy Reactions Criticality Noted Date [...] mellitus type 2 wit h neurological manifestations ([facility] V24, [facility] V28) 11/22/2017 Hyperlipidemia 11/22/2017 Hypertension 11/22/2017 Encounters Date Type Department Care Team Description 08/08/2024 9:45 AM EDT Office Visit Orthopedic Surgery - [place] [address] [place] [phone] Gurwinder Bettencourt, DPM Dermatophytosis of nail (Primary Dx); Diabetic mononeuropathy simplex ([facility] V24, [facility] V28); Primary osteoarthritis of both feet; Ingrowing nail from Last 3 Months Surgical History Surgery [...] mellitus type 2 wit h neurological manifestations ([facility] V24, [facility] V28) 11/22/2017 DX:Diabetes mellitus type 2 with neurological manifestations (HCC) Fatty liver 07/02/2018 DX:Fatty liver Hearing loss, sensorineural 07/02/2018 DX:H earing loss, sensorineural Hyperlipidemia 11/22/2017 DX:Hyperlipidemi a Hypertension 11/22/2017 DX:Hypertension Peripheral neuropathy 07/02/2018 DX:Periphe ral neuropathy Family History Medical History Relation Name Comments Hypertension Father hip fx, CAP, ma cular degeneration age 85 COPD Mother colon polyps/re section, [place], stroke, HTN age 71 Relation Name Status [...] Care Team (Late st Contact Info) Description 11/12/2024 10:15 AM EDT Office Visit Orthopedic Surgery - [place] [address] [phone] Gurwinder Bettencourt, DPDaisy [address] [address] Health Maintenance Due Date Last Done Comments [...] 01/26/2023, 01/08/2022, Additional history exists Influenza Vaccine (#1) 2024 DTaP,Tdap,and Td Vaccines (2 - Td [...] Insurance MEDICA[place] - [place] MEDICARE Care Teams Mixed Crop And Livestock Farm Worker Relationship Specialty Start Date End Date Radu Molina MD [address] [place] [address] Dr Nate MA PCP - General Internal Medicine 12/25/23
[2024-08-27 10:07] LABS: Alanine Aminotransferase 37 U/L (0-40); Albumin Level 4.3 g/dL (3.5-5.0); Alkaline Phosphatase 76 U/L (39-117); Anion Gap 12 (12-20); Aspartate Amino Transferase 37 U/L (5-37); Blood Urea Nitrogen 16 mg/dL (9-16); Calcium 9.1 mg/dL (8.4-10.2); Carbon Dioxide 25 mmol/L (22-29); Chloride 103 mmol/L (96-108); Estimated Glomerular Filt Rate > 60; Iron 118 mcg/dL (45-160); Percent Iron Saturation 40 % (15-50); Potassium 4.4 mmol/L (3.3-5.1); Sodium 136 mmol/L (135-145); Total Iron Binding Capacity 298 mcg/dL (228-428); Total Protein 7.0 g/dL (6.5-8.0); Unsaturated Iron Binding 180 ug/dL
[2024-08-27 11:26] LABS: Free T4 (Free Thyroxine) 0.78 ng/dL (0.71-1.85)
== END 2024-08-27 08:17 | disposition home or self-care (01) ==
LOC: HO.10HDL 08:16
PROVIDERS: Visit Provider Nurse Practitioner Family
DX: E11.65 Type 2 diabetes mellitus with hyperglycemia (principal); D64.9 Anemia, unspecified; K59.00 Constipation, unspecified
CPT/HCPCS: 36415; 80053; 83540; 84439; 84443

== ENCOUNTER 2024-09-12 14:12 | Outpatient (AMB) | payer MEDICARE, MEDICAID, SELFPAY ==
--- NOTE | 2024-09-12 13:22 | A.OFFPC_ITS ---
Intake Visit Reasons: Telehealth - call pt to discuss bw Aircraft Accessories Mechanic Required: No Allergies lisinopril Allergy (Intermediate, Verified 09/12/24 13:22) Cough sulfamethoxazole (From Bactrim) Allergy (Mild, Verified 09/12/24 13:22) unknown trimethoprim (From Bactrim) Allergy (Mild, Verified 09/12/24 13:22) unknown Tobacco use date assessed: 05/24/24 Dental Screening Dental Screen Date: 05/24/24 HPI HPI Comments History of Present Illness Details The patient is a 70 year old male with a past medical history of htn, diabetes, hyperlipidemia presenting for follow up telehealth visit Labs with elevated TSH low free t4. Has been fatigued, constipated DM: Recent A1C 8.0% from 8.2% up from 7%. Has been taking 750mg metformin twice daily. CV: On amlodipine, simvastatin, irbesartan. Denies chest pain, dyspnea Left hip pain increased. Does a lot of walking as he is not driving. He saw ortho and is going to PT Colonoscopy is scheduled ROS see HPI PHYSICAL EXAM: GENERAL: Alert and oriented x 3. NAD EYES: EOMI. Anicteric. HENT: Moist mucous membranes. No scleral icterus. No cervical lymphadenopathy. LUNGS: Clear to auscultation bilaterally. CARDIOVASCULAR: Regular rate and rhythm. No murmur. No JVD. ABDOMEN: Soft, non-tender +bs EXTREMITIES: No edema. Non-tender. SKIN: No rashes or lesions. Warm. NEUROLOGIC: No focal neurological deficits. CN II-XII grossly intact PSYCHIATRIC: Cooperative. Appropriate mood and affect [facility] Medical History (Updated 09/12/24 @ 14:37 by Yojana Wells MD) Constipation Anemia Hip pain, left Pulmonary nodules/lesions, multiple Infiltrate noted on imaging study Bronchiectasis Family History (Updated 08/23/24 @ 09:15 by Radha Short CNP) Mother Heart attack COPD (chronic obstructive pulmonary disease) Colonic disease Father Pneumonia Social History Housing: House Alcohol intake: current Alcohol intake frequency: does not drink Patient Tobacco Use Status: Never used Tobacco e-Cigarette/Vaping Use: Never Used service: No Current occupational status: retired and disabled Cognitive needs: No Hearing needs: Yes (b/l hearing aids ) Vision needs: Yes (rx glasses) Questionnaire Thrive Questionnaire Date Thrive assessed: 05/24/24 CASA-7 AMB Questionnaire CASA-7 Date CASA - 7 assessed: 05/24/24 Source: Developed by Drs. Denis Patricia, Paula Gu, Domo Corral and colleagues, with an educational lazaro from [employer]. Physical exam (Primary Care) Tobacco/Smoking Status: Tobacco use Status Tobacco use date assessed 05/24/24 09/12/24 13:25 Patient Tobacco Use Status Never used Tobacco 09/12/24 13:25 e-Cigarette/Vaping Use Never Used 09/12/24 13:25 Thrive Assessment: Date of Thrive Assessment Date Thrive assessed 05/24/24 09/12/24 13:25 Telehealth Telehealth Telehealth Platform: [employer] Location of provider rendering services: practice address Location of patient: address on file Patient Identification confirmed using: Name, : Yes Telehealth method: voice only Patient verbally consented to treatment: Yes Patient verbally consented to billing insurance company: Yes Patient informed of any privacy concerns related to visit: Yes Minutes spent on Phone/Video with Pt.: 25 Coding Level of Care Code Tele Est Pt Level 3 (73825) Diagnoses Type 2 diabetes mellitus with hyperglycemia, without long-term current use of insulin E11.65 Diabetes mellitus type: type 2 Diabetes mellitus intermediate teacher insulin use: without intermediate teacher use Diabetes mellitus complication status: with hyperglycemia Primary hypertension I10 Hypertension type: primary hypertension Assessment & Plan Assessment & Plan (1) Diabetes mellitus: Code(s): E11.9 - Type 2 diabetes mellitus without complications Category: Medical Qualifiers: Diabetes mellitus type: type 2 Diabetes mellitus penitentiary insulin use: without penitentiary use Diabetes mellitus complication status: with hyperglycemia Qualified Code(s): E11.65 - Type 2 diabetes mellitus with hyperglycemia (2) Hypertension: Code(s): I10 - Essential (primary) hypertension Category: Medical Qualifiers: Hypertension type: primary hypertension Qualified Code(s): I10 - Essential (primary) hypertension Plan Hypothyroid. Start levothyroxine 50mcg daily DM-uncontrolled. Improving Orders: Orders Thyroid Stimulating Hormone 09/12/24 R94.6 - Abnormal results of thyroid function studies Thyroid Peroxidase Antibodies 09/12/24 R94.6 - Abnormal results of thyroid function studies Medications: New levothyroxine (Levoxyl) 50 mcg PO DAILY 90 tabs 3RF
--- OUTSIDE RECORDS SUMMARY | 2024-09-12 15:01 | XMS_ITS | Clinical Summary ---
Author Organization 175 [facility] Address [address] [place] [address] Phone Care Team Providers Care Pitting Machine Operator Name Role Phone Radu Molina MD Primary Care Provider [phone] Allergies Active Allergy Reactions Criticality Noted Date [...] mellitus type 2 wit h neurological manifestations ([facility] V24, [facility] V28) 11/22/2017 Hyperlipidemia 11/22/2017 Hypertension 11/22/2017 Encounters Date Type Department Care Team Description 08/08/2024 9:45 AM EDT Office Visit Orthopedic Surgery - [place] [address] [place] [phone] Gurwinder Bettencourt, DPM Dermatophytosis of nail (Primary Dx); Diabetic mononeuropathy simplex ([facility] V24, [facility] V28); Primary osteoarthritis of both feet; [...] mellitus type 2 wit h neurological manifestations ([facility] V24, [facility] V28) 11/22/2017 DX:Diabetes mellitus type 2 with neurological manifestations (HCC) Fatty liver 07/02/2018 DX:Fatty liver Hearing loss, sensorineural 07/02/2018 DX:H earing loss, sensorineural Hyperlipidemia 11/22/2017 DX:Hyperlipidemi a Hypertension 11/22/2017 DX:Hypertension Peripheral neuropathy 07/02/2018 DX:Periphe ral neuropathy Family History Medical History Relation Name Comments Hypertension Father hip fx, CAP, ma cular degeneration age 85 COPD Mother colon polyps/re section, [place], stroke, HTN age 71 Relation Name Status [...] AM EDT Office Visit Orthopedic Surgery - [place] [address] [phone] Gurwinder Bettencourt, DPDaisy [address] [address] Health Maintenance Due Date Last Done Comments [...] Insurance [place] - [place]ARE Care Teams Pitting Machine Operator Relationship Specialty Start Date End Date Radu Molina MD [address] [place] [address] Dr Nate [place] PCP - General Internal Medicine 12/25/23
--- OUTSIDE RECORDS SUMMARY | 2024-09-12 15:01 | XMS_ITS | Clinical Summary ---
Author Organization [employer] Address [address] [facility] 7t [place] [address] Care Team Providers Care Metal Furnace Operator Name Role Phone Unavailable Primary Care Provider [...] of 1 - PCV) 03/18/2005 COVID-19 Vaccine (8 - 2023- season) 2024 11/24/2023, 01/26/2023, 01/08/2022, Additional history exists Influenza Vaccine (#1) 2024 Tobacco Screening 01/02/2025 01/03/2024 DTaP/Tdap/Td Vaccines [...]
== END 2024-09-12 14:39 | disposition home or self-care (01) ==
LOC: HO.HMCHD 14:12
PROVIDERS: PCP Internal Medicine; Visit Provider Internal Medicine
DX: E11.65 Type 2 diabetes mellitus with hyperglycemia (principal); I10 Essential (primary) hypertension

== ENCOUNTER 2024-09-19 11:00 | Outpatient (RCR) | payer MEDICARE, MEDICAID, SELFPAY ==
--- NOTE | 2024-10-03 10:30 | MHC.PT.DC ---
[facility] [place] Office [place] Office [place] Office [address] Jarrod Uriostegui [address] [phone] F: [phone] F: [phone] F: [phone] F: [phone] Physical Therapy Discharge Report Diagnosis: LEFT HIP PAIN (KP) Date of Surgery: Date of Evaluation: 08/09/24 Date of Discharge: 09/19/24 Treatments to Date: 8 Cancellations to Date: 0 No Shows to Date: 0 Discharge Status: Achieved Goals Improved Function Independent with HEP Discharge Summary: INDEPENDENT WITH CURRENT HEP AND ABLE TO SELF MANAGE SYMPTOMS. DC ON THIS DATE Electronically signed by: Liv Osorio PT DPT Please sign and return to therapist. Thank you for your referral.
== END 2024-10-03 10:30 | disposition home or self-care (01) ==
LOC: HO.PT 11:00
PROVIDERS: PCP Internal Medicine; Visit Provider Physician Assistant
DX: M16.12 Unilateral primary osteoarthritis, left hip (principal)
CPT/HCPCS: 97110; 97162; 97535

== ENCOUNTER 2024-11-20 09:34 | Outpatient (REF) | payer MEDICARE, MEDICAID, SELFPAY ==
[2024-11-20 10:08] LABS: MANUAL DIFF FLAG NO
[2024-11-20 11:11] LABS: Hematocrit 39.1 % (42.0-52.0); Hemoglobin 13.1 g/dl (14.0-18.0); Imm Gran Abs Auto 0.01 X10*3/uL (0.00-0.03); Imm Gran Pct Auto 0.2 % (0.0-0.4); Lymphocytes Absolute Auto 1.5 X10*3/uL (1.2-4.9); Mean Corpuscular HGB Conc 33.5 g/dl (31.0-36.0); Mean Corpuscular Hemoglobin 31.6 pg (27.0-33.0); Mean Corpuscular Volume 94.2 fL (80.0-98.0); NRBC Abs Auto 0.000 X10*3/uL (0.0-0.012); NRBC Pct Auto 0.0 /100WBC (0.0-0.2); Platelet Count 316 X10*3/uL (160-400); Red Blood Count 4.15 X10*6/uL (4.60-5.80); White Blood Count 5.9 X10*3/uL (4.8-10.8)
--- OUTSIDE RECORDS SUMMARY | 2024-11-20 11:27 | XMS_ITS | Clinical Summary ---
Author Organization [employer] Address [address] [facility] 7t [place] [address] Care Team Providers Care Ground Crew Linesman Name Role Phone Unavailable Primary Care Provider [...] Use Screening 03/18/1967 Hepatitis C Screening 03/18/1973 Hepatitis A Vaccines (1 of 2 - Risk 2-dose series) 03/18/1974 Pneumococcal Vaccine: 50+ Years (1 of 1 - PCV) 03/18/2005 Hepatitis B Vaccines (1 of 3 - Risk 3-dose series) 03/18/2015 COVID-19 Vaccine ( season) 2024 11/24/2023, 01/26/2023, [...]
--- OUTSIDE RECORDS SUMMARY | 2024-11-20 11:27 | XMS_ITS | Clinical Summary ---
Author Organization 175 [facility] Address [address] [place] [address] Phone Care Team Providers Care Experimental Aircraft Mechanic Name Role Phone Radu Molina MD Primary Care Provider Allergies Active Allergy Reactions Criticality Noted Date [...] % lotion Apply to both feet daily. 8 Active amoxicillin (AMOXIL) 500 mg capsule take 1 capsule (500 mg) by mouth every 8 hours for 7 days 4 Active ibuprofen (ADVIL,MOTRIN) 600 mg tablet TAKE 1 TABLET (600 MG) BY MOUTH EVERY 6 (SIX) HOURS IF NEEDED FOR MILD PAIN FOR UP TO 10 DAYS. 4 Active bisacodyL (DULCOLAX) 5 mg EC tablet TAKE 1 TABLET BY MOUTH FOR ONCE FOR 1 DAY, TAKE 4 TABS ONCE FOR 1 DAY PER COLONOSCOPY 5 Active levothyroxine (SYNTHROID, LEVOTHROID) 50 mcg tablet Take 1 tablet (50 mcg total) by mouth 1 (one) time each day. 5 Active Active Problems Problem Noted Date Diagnosed Date Cardiac murmur 07/02/2018 Fatty liver 07/02/2018 Hearing loss, sensorineural 07/02/2018 Peripheral neuropathy 07/02/2018 Anxiety 11/22/2017 Diabetes mellitus type 2 wit h neurological manifestations (CMS/HCC V24, CMS/HCC V28) 11/22/2017 Hyperlipidemia 11/22/2017 Hypertension 11/22/2017 Encounters Date Type Department Care Team Description 11/12/2024 10:15 AM EDT Office Visit Orthopedic Surgery - [address] [phone] Gurwinder Bettencourt, DPM Primary osteoarthritis of both feet (Primary Dx); Dermatophytosis of nail; Diabetic mononeuropathy simplex (CMS/HCC V24, CMS/[facility] V28); Ingrowing nail; Pain in toe of right foot; Pain in toe of left foot; Acquired hammer toe of right foot; Hammer toe of left foot from Last 3 [...] neurological manifestations (CMS/HCC V24, CMS/HCC V28) 11/22/2017 DX:Diabetes mellitus type 2 with neurological manifestations (HCC) Fatty liver 07/02/2018 DX:Fatty liver Hearing loss, sensorineural 07/02/2018 DX:H earing loss, sensorineural Hyperlipidemia 11/22/2017 DX:Hyperlipidemi a Hypertension 11/22/2017 DX:Hypertension Peripheral neuropathy 07/02/2018 DX:Periphe ral neuropathy Family History Medical History Relation Name Comments Hypertension Father hip fx, CAP, ma cular degeneration age 85 COPD Mother colon polyps/re section, [place], stroke, HTN age 71 Relation Name Status [...] Care Team (Late st Contact Info) Description 01/21/2025 9:30 AM EST Office Visit Orthopedic Surgery - [place] [address] [phone] Gurwinder Bettencourt, DPM [address] [phone] Health Maintenance Due Date Last Done Comments Diabetes: Annual GFR (Glomerular Filtration Rate) 03/18/1955 Diabetes: Annual Foot Exam 03/18/1965 Diabetes: Annual Retina Eye Exam 03/18/1965 Pneumococcal Vaccine: 50+ Years (1 of 2 - PCV) 03/18/1974 Cholesterol Screening (Lipid Panel) 10/23/2023 Colorectal Cancer Screening: Colonoscopy 10/23/2023 Diabetes: Annual Urine Albumin-Creatinine Ratio (uACR) 10/23/2023 Diabetes: Blood Sugar Control Test (HGBA1C) 10/23/2023 Falls Risk Assessment 10/23/2023 Hepatitis C Screening 10/23/2023 Hypertension/CHF/CAD Annual BMP Blood Test 10/23/2023 Medicare Annual Wellness Visit 10/23/2023 Social Influencers of Health Screening 10/23/2023 Depression Screening 02/28/2024 COVID-19 Vaccine ( season) 2024 11/24/2023, 01/26/2023, [...] to complete this topic [place] Care Teams Experimental Aircraft Mechanic Relationship Specialty Start Date End Date Radu Molina MD [address] [place] [address] Dr Nate [place] PCP - General Internal Medicine 12/25/23
--- OUTSIDE RECORDS SUMMARY | 2024-11-20 11:27 | XMS_ITS | Encounter Summary ---
Author Organization [employer] Address [address] [facility] 7t [place] [address] Care Team Providers Care Home Appliance Installer Name Role Phone Unavailable Primary Care Provider Unavailabl e Encounter Details Date Type Department Care Team (Late st Contact Info) Description 01/09/2024 Telephone [facility] ADULT D[facility] [address] [place] [address] Otto Bernabe, CORINNA [address] [place] [address] Social History Tobacco Use Types Packs/Day Years [...]
[2024-11-20 12:11] LABS: Alanine Aminotransferase 36 U/L (0-40); Albumin Level 4.5 g/dL (3.5-5.0); Alkaline Phosphatase 74 U/L (39-117); Anion Gap 12 (12-20); Aspartate Amino Transferase 34 U/L (5-37); Blood Urea Nitrogen 17 mg/dL (9-16); Calcium 9.1 mg/dL (8.4-10.2); Carbon Dioxide 27 mmol/L (22-29); Chloride 103 mmol/L (96-108); Cholesterol 117 mg/dL (<200); Estimated Glomerular Filt Rate > 60; HDL Cholesterol 47 mg/dL (>40); Potassium 4.6 mmol/L (3.3-5.1); Sodium 137 mmol/L (135-145); Thyroid Stimulating Hormone 3.20 uIU/mL (0.32-4.0); Total Protein 7.2 g/dL (6.5-8.0); Triglycerides 82 mg/dL (<150)
== END 2024-11-20 09:35 | disposition home or self-care (01) ==
LOC: HO.LAB 09:34
PROVIDERS: PCP Internal Medicine; Visit Provider Internal Medicine
DX: E11.65 Type 2 diabetes mellitus with hyperglycemia (principal); R94.6 Abnormal results of thyroid function studies
CPT/HCPCS: 36415; 80053; 80061; 82043; 82570; 84443; 85025; 86376

== ENCOUNTER 2024-11-28 08:40 | Outpatient (AMB) | payer MEDICARE, MEDICAID, SELFPAY ==
--- NOTE | 2024-11-28 08:14 | A.OFFPC_ITS ---
Vital Signs 11/28/24 08:18 Height 5 ft 8 in Weight 177 lb BMI 26.9 BP 120/64 Blood Pressure Location Rt brachial Position Sitting Respiration 18 Pulse 89 Pulse Source Pulse Oximeter Temp 97.8 F Temp Source Temporal Artery Scan Pulse Oximetry (%) 97 Oxygen Delivery Method Room Air Intake Visit Reasons: Routine Relations Liaison Required: No Accompanied by: Self / Same As Patient Allergies lisinopril Allergy (Intermediate, Verified 11/28/24 08:15) Cough sulfamethoxazole (From Bactrim) Allergy (Mild, Verified 11/28/24 08:15) unknown trimethoprim (From Bactrim) Allergy (Mild, Verified 11/28/24 08:15) unknown Medication List - Last Reconciled 11/28/24 by Issac Toney MD amlodipine (Norvasc) 5 mg PO DAILY aspirin (Adult Aspirin Regimen) 81 mg PO DAILY bupropion HCl XL (Wellbutrin XL) 300 mg PO QAM irbesartan 150 mg PO DAILY levothyroxine (Levoxyl) 50 mcg PO DAILY lorazepam 0.25 mg (1/2 x 0.5 mg) PO DAILY PRN metformin 1,000 mg PO BID mirtazapine 7.5 mg PO DAILY simvastatin 40 mg PO DAILY Tobacco use date assessed: 11/28/24 Fall risk assessment: No Falls in past year Last assessed Fall Risk: 11/28/24 Dental Screening Dental Screen Date: 11/28/24 Did you have a dental visit in the last 12 months?: Yes Did you have a dental problem in the last 6 months where you did not have access to dental care?: No Was dental information given to patient?: Patient has dentist HPI HPI Comments History of Present Illness Details The patient is a 70-year-old male presenting with a concern about the eligibility for diabetic shoes due to his Type 2 Diabetes Mellitus. He mentions wearing diabetic shoes with inserts and having recently received a new prescription from his principal planner. The patient highlights a need for approval documents from his primary care provider to proceed with the new shoe fitting. The patient was also inquiring about the last A1c results, as recent lab work did not include this measurement. Additionally, the patient provided some history about managing his diabetes with metformin and was interested in a current evaluation of his glycemic control. He mentioned his last A1c result was 8.0, taken in July, and expressed concern regarding the process of receiving the necessary coverage documentation for his shoes due to his diabetic status. Other chronic conditions mentioned include hypertension, hypothyroidism, and cataracts. The patient monitors his blood pressure regularly and is on medication. Medical History: - Type 2 Diabetes Mellitus - Hypertension - Hypothyroidism - Hypercholesterolemia - History of anxiety - History of depression - Recent cataract diagnosis Medications: - Amlodipine 5 mg once daily for hyperte nsion - Aspirin 81 mg once daily for cardiovas cular prevention - Valsartan 150 mg daily for hypertensio n - Levothyroxine 50 mcg daily for hypothy roidism - Metformin 1000 mg twice daily for diab etes - Simvastatin 40 mg daily for hyperchole sterolemia - Mirtazapine 7.5 mg for depression - Bupropion 300 mg every morning for dep ression - Lorazepam 0.25 mg daily for anxiety Diagnostic Results: - Labs: - Recent cholesterol: LDL 54 mg/ dL, total cholesterol 117 mg/dL - Thyroid function: TSH 3.2 ?IU/mL - No A1c conducted in recent labs - Past A1c: 8.0 in July 2022 Social History: - Pathological conditions managed with p harmacotherapy as cited - Not employed - Uses hearing aids [facility] Medical History (Updated 11/28/24 @ 09:25 by Issac Toney MD) Cataracts, bilateral Hyperlipidemia Constipation Anemia Hip pain, left Pulmonary nodules/lesions, multiple Infiltrate noted on imaging study Bronchiectasis Family History (Updated 08/23/24 @ 09:15 by Radha Short CNP) Mother Heart attack COPD (chronic obstructive pulmonary disease) Colonic disease Father Pneumonia Social History Housing: House Alcohol intake: current Alcohol intake frequency: does not drink Patient Tobacco Use Status: Never used Tobacco e-Cigarette/Vaping Use: Never Used service: No Current occupational status: retired and disabled Cognitive needs: No Hearing needs: Yes (b/l hearing aids ) Vision needs: Yes (rx glasses) Questionnaire Thrive Questionnaire Date Thrive assessed: 05/24/24 AUDIT C Alcohol Use Questionnaire (AUDIT-C) 1. How often do you have a drink containing alcohol?: Never 3. How often do you have six or more drinks on one occasion?: Never Total Score: 0 CASA-7 AMB Questionnaire CASA-7 Date CASA - 7 assessed: 05/24/24 Source: Developed by Drs. Denis Patricia, Paula Gu, Domo Corral and colleagues, with an educational lazaro from [employer]. Review of Systems Const Details: - Endocrine: Reports Type 2 Diabetes Mellitus, hypothyroidism - Cardiovascular: Reports hypertension - Musculoskeletal: Reports use of diabetic shoes with inserts - Ophthalmologic: Reports cataracts - Hematological: Denies recent smoking history All systems reviewed & are unremarkable except as reviewed in HPI and above Physical exam (Primary Care) Vital Signs: Last Vital Signs Temp 97.8 F 11/28/24 08:18 Pulse 89 11/28/24 08:18 Resp 18 11/28/24 08:18 BP 120/64 11/28/24 08:18 Pulse Ox 97 11/28/24 08:18 Oxygen Delivery Method Room Air 11/28/24 08:18 BMI result Body Mass Index 26.9 Tobacco/Smoking Status: Tobacco use Status Tobacco use date assessed 11/28/24 11/28/24 08:18 Patient Tobacco Use Status Never used Tobacco 11/28/24 08:18 e-Cigarette/Vaping Use Never Used 11/28/24 08:18 Thrive Assessment: Date of Thrive Assessment Date Thrive assessed 05/24/24 11/28/24 08:18 Const Other: General: Alert and oriented, Well nourished, No acute distress. Eye: Pupils are equal, round and reactive to light, Intact accommodation, Extraocular movements are intact, Normal conjunctiva, Vision unchanged. Patient reports wearing bifocals and has cataracts. HENT: Normocephalic, Atraumatic, Tympanic membranes are clear, Normal hearing, Oral mucosa is moist, No pharyngeal erythema, Ear canals patent. Patient uses hearing aids. Respiratory: Lungs CTA bilaterally, No wheeze, Respirations are non-labored. Cardiovascular: Regular rate, Regular rhythm, S1 auscultated, S2 auscultated, No murmur, Good pulses equal in all extremities, Normal peripheral perfusion, No edema. Gastrointestinal: Soft, Non-tender, Non-distended, Normal bowel sounds, No organomegaly. Patient reports not having a bowel movement for two days, possibly due to anxiety. Musculoskeletal: Normal range of motion, Normal strength, No tenderness, No swelling, No deformity, Normal gait. Integumentary: Warm, Dry, [place], Intact. Neurologic: Alert, Oriented, Normal sensory, Normal motor function, No focal defects, Cranial Nerves II-XII are grossly intact, Normal deep tendon reflexes. Psychiatric: Cooperative, Appropriate mood & affect, Normal judgment. Coding Level of Care Code Est Pt Level 4 (75115) Complex EM visit Add On G2211 Diagnoses Primary hypertension I10 Hypertension type: primary hypertension Type 2 diabetes mellitus with hyperglycemia, without long-term current use of insulin E11.65 Diabetes mellitus complication status: with hyperglycemia Diabetes mellitus penitentiary insulin use: without penitentiary use Diabetes mellitus type: type 2 Other specified hypothyroidism E03.8 Hypothyroidism type: other Hyperlipidemia, unspecified hyperlipidemia type E78.5 Hyperlipidemia type: unspecified Cataract of both eyes, unspecified cataract type H26.9 Cataract type: unspecified Assessment & Plan Assessment & Plan (1) Hypertension: Comment: - Maintain Irbesartan 150 mg and amlodipine 5 mg daily. - Blood pressure measurements suggest good control; continue to monitor regularly. Code(s): I10 - Essential (primary) hypertension Category: Medical Qualifiers: Hypertension type: primary hypertension Qualified Code(s): I10 - Essential (primary) hypertension (2) Diabetes mellitus: Comment: - Evaluate current A1c status and provide supporting documentation for shoe eligibility. - Advise on continuation of metformin 1000 mg twice daily with reassessment planned today and repeat in three months. - If A1c significantly changed from 8.0 will change medications Code(s): E11.9 - Type 2 diabetes mellitus without complications Category: Medical Qualifiers: Diabetes mellitus complication status: with hyperglycemia Diabetes mellitus penitentiary insulin use: without superintendent terminal use Diabetes mellitus type: type 2 Qualified Code(s): E11.65 - Type 2 diabetes mellitus with hyperglycemia (3) Hypothyroid: Comment: - Continue levothyroxine 50 mcg daily. - Current thyroid function tests suggest good control (TSH at 3.2). Category: Medical Qualifiers: Hypothyroidism type: other Qualified Code(s): E03.8 - Other specified hypothyroidism (4) Hyperlipidemia: Comment: - Continue simvastatin therapy as cholesterol levels are well-managed. Code(s): E78.5 - Hyperlipidemia, unspecified Category: Medical Qualifiers: Hyperlipidemia type: unspecified Qualified Code(s): E78.5 - Hyperlipidemia, unspecified (5) Cataracts, bilateral: Comment: - Follow scheduled ophthalmologic appointments for monitoring progression. Code(s): H26.9 - Unspecified cataract Category: Medical Qualifiers: Cataract type: unspecified Qualified Code(s): H26.9 - Unspecified cataract Plan: Healthcare maintenance: - Discussion on recommended vaccinations: flu shot, COVID booster - Monitoring for diabetes management through planned A1c evaluation Patient was informed and verbally consented to the use of an ambient scribe for clinic note documentation during this visit. Plan During the visit, we discussed the patient's eligibility documentation needed for diabetic shoes, which is authorized upon receiving a release of information to provide documentation to the shoe supplier. The patient was reassured about reaching an A1c of 8.0 and the importance of diabetes management through regular monitoring. I explained the benefits of vaccinations, including flu and COVID boosters, and advised on getting these from local pharmacies. Detailed plans for managing the patient's hypertension and hypothyroidism were discussed, confirming good control with current medications. Further guidelines were provided on maintaining cholesterol levels and monitoring cataract progression. I clarified the necessity for regular follow-up and testing, particularly for diabetes management. Orders: Orders Hemoglobin A1c Today Issac Toney MD E11.65 - Type 2 diabetes mellitus with hyperglycemia Hemoglobin A1c 3 Months Issac Toney MD E11.65 - Type 2 diabetes mellitus with hyperglycemia Medications: Changed From mirtazapine 15 mg PO DAILY 90 tabs 3RF To mirtazapine 7.5 mg PO DAILY Yojana Wells MD Patient Instructions: - Continue all current medications as prescribed. - Keep regular follow-ups for nearest A1c evaluations and blood pressure checks. - Obtain required vaccinations (flu shot and COVID booster) from a [facility]. - Schedule and attend follow-up ophthalmology appointments for cataract assessment. - Ensure authorization for release of information for shoe documentation. - Report any significant changes in health status or medication side effects.
[2024-11-28 08:18] VITALS: BP 120/64; PULSE 89; RESP 18; TEMP 36.6; O2SAT 97; BMI 26.9
--- OUTSIDE RECORDS SUMMARY | 2024-11-28 09:04 | XMS_ITS | Encounter Summary ---
Author Organization [employer] Address [address] [facility] [address] [place] [address] Care Team Providers Care Tassel Clipper Name Role Phone Unavailable Primary Care Provider Unavailabl e Encounter Details Date Type Department Care Team (Late st Contact Info) Description 01/09/2024 Telephone [facility] [address] [place] [address] Otto Bernabe, CORINNA [address] [place] [address] Social History Tobacco Use Types Packs/Day Years [...]
--- OUTSIDE RECORDS SUMMARY | 2024-11-28 09:04 | XMS_ITS | Clinical Summary ---
Author Organization [address] [facility] Address [address] [place] [address] Phone Care Team Providers Care Hr Clerk Name Role Phone Radu Molina MD Primary Care Provider [phone] Allergies Active Allergy Reactions Criticality Noted Date [...] AM EDT Office Visit Orthopedic Surgery - [address] [address] Gurwinder Bettencourt, DPM Primary osteoarthritis of both feet (Primary Dx); Dermatophytosis of nail; Diabetic mononeuropathy simplex (CMS/HCC V24, CMS/[facility] V28); Ingrowing nail; Pain in toe of [...] age 85 COPD Mother colon polyps/re section, [place], stroke, HTN age 71 Relation Name Status [...] AM EST Office Visit Orthopedic Surgery - [place] [address] [address] Gurwinder Bettencourt, DPM [address] [phone] Health Maintenance Due Date Last Done Comments Colorectal Cancer Screening: Colonoscopy 03/18/1955 Diabetes: Annual GFR (Glomerular Filtration Rate) 03/18/1955 Diabetes: Annual Foot Exam 03/18/1965 Diabetes: Annual Retina Eye Exam 03/18/1965 Pneumococcal Vaccine: 50+ Years (1 of 2 - PCV) 03/18/1974 Cholesterol Screening (Lipid Panel) 10/23/2023 Diabetes: Annual Urine Albumin-Creatinine Ratio (uACR) [...] to complete this topic Insurance MEDICAID - [place] MEDICARE Care Teams Hr Clerk Relationship Specialty Start Date End Date Radu Molina MD [address] [place] [address] Dr Nate [place] PCP - General Internal Medicine 12/25/23
--- OUTSIDE RECORDS SUMMARY | 2024-11-28 09:04 | XMS_ITS | Clinical Summary ---
Author Organization [employer] Address [address] [facility] [address] [place] [address] Care Team Providers Care Head Batcher Name Role Phone Unavailable Primary Care Provider [...]
== END 2024-11-28 09:26 | disposition home or self-care (01) ==
PROVIDERS: PCP Student in an Organized Health Care Education/Training Program; Visit Provider Student in an Organized Health Care Education/Training Program
DX: I10 Essential (primary) hypertension (principal); E11.65 Type 2 diabetes mellitus with hyperglycemia; E03.8 Other specified hypothyroidism; E78.5 Hyperlipidemia, unspecified; H26.9 Unspecified cataract

== ENCOUNTER → 2024-11-28 08:40 | Outpatient (BNVA) | payer MEDICARE, MEDICAID, SELFPAY | PROVIDERS: PCP Internal Medicine; Visit Provider Student in an Organized Health Care Education/Training Program | DX: I10 Essential (primary) hypertension (principal); E11.65 Type 2 diabetes mellitus with hyperglycemia; E03.8 Other specified hypothyroidism; E78.5 Hyperlipidemia, unspecified; H26.9 Unspecified cataract; Z79.82 Long term (current) use of aspirin; Z79.84 Long term (current) use of oral hypoglycemic drugs; Z79.899 Other long term (current) drug therapy | CPT/HCPCS: 99212 ==

== ENCOUNTER 2024-11-28 09:28 | Outpatient (REF) | payer MEDICARE, MEDICAID, SELFPAY ==
[2024-11-28 10:45] LABS: Total Hemoglobin (HGBA1C) 3537.4571 umol/L
== END 2024-11-28 09:29 | disposition home or self-care (01) ==
LOC: HO.10HDL 09:28
PROVIDERS: Visit Provider Student in an Organized Health Care Education/Training Program
DX: E11.65 Type 2 diabetes mellitus with hyperglycemia (principal)
CPT/HCPCS: 36415; 83036

== ENCOUNTER 2025-01-01 09:15 | Outpatient (REF) | payer MEDICARE, MEDICAID, SELFPAY ==
--- NOTE | ~2025-01-01 | XR_ITS ---
EXAMINATION: XR SHOULDER, RIGHT CLINICAL INFORMATION: M25.611 - Stiffness of right shoulder, not elsewhere classified COMPARISON: None available. TECHNIQUE: AP external rotation, Grashey, scapular Y, and axillary views of the right shoulder. FINDINGS: Normal bone mineralization. No fracture, dislocation, or suspicious bone lesion. Normal alignment. The glenohumeral joint demonstrates mild to moderate osteoarthrosis. The AC joint demonstrates moderate degenerative spurring both superior and undersurface. There is a type II acromion. No undersurface spurring. The subacromial space is mildly narrowed. Remainder of the soft tissue and bony structures appear normal. XR/XR shoulder RT min 2V IMPRESSION: 1. Mild to moderate degenerative arthrosis of the glenohumeral joint. 2. Moderate degenerative spurring of the AC joint. 3. Mild narrowing of the subacromial space. Electronically signed by: Ayaz Calles MD 01/01/2025 11:00 AM [facility]
== END 2025-01-01 09:16 | disposition home or self-care (01) ==
LOC: HO.XRAY 09:15
PROVIDERS: PCP Student in an Organized Health Care Education/Training Program; Visit Provider Student in an Organized Health Care Education/Training Program
DX: M25.611 Stiffness of right shoulder, not elsewhere classified (principal); M25.511 Pain in right shoulder; E11.65 Type 2 diabetes mellitus with hyperglycemia; I10 Essential (primary) hypertension; E78.00 Pure hypercholesterolemia, unspecified; E03.8 Other specified hypothyroidism; F41.9 Anxiety disorder, unspecified; Z79.899 Other long term (current) drug therapy
CPT/HCPCS: 73030; 96127; 99212

== ENCOUNTER 2025-01-01 09:15 | Outpatient (AMB) | payer MEDICARE, MEDICAID, SELFPAY ==
[2025-01-01 08:57] VITALS: BP 137/70; PULSE 80; TEMP 36.6; O2SAT 98; BMI 27.7
--- NOTE | 2025-01-01 08:57 | A.OFFPC_ITS ---
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: No Accompanied by: Self / Same As Patient Allergies lisinopril Allergy (Intermediate, Verified 01/01/25 08:57) Cough sulfamethoxazole (From Bactrim) Allergy (Mild, Verified 01/01/25 08:57) unknown trimethoprim (From Bactrim) Allergy (Mild, Verified 01/01/25 08:57) unknown Tobacco use date assessed: 01/01/25 Fall risk assessment: No Falls in past year Last assessed Fall Risk: 01/01/25 Dental Screening Dental Screen Date: 01/01/25 Did you have a dental visit in the last 12 months?: Yes Did you have a dental problem in the last 6 months where you did not have access to dental care?: No HPI HPI Comments History of Present Illness Details The patient is a 70-year-old male presenting with right shoulder pain. He reports the onset of pain and stiffness in his right shoulder approximately 4-5 weeks ago, which has since radiated down his arm. He does not recall any specific injury or unusual event that precipitated the initial symptoms. The patient believes he re-injured himself over the weekend when lifting a small bag of groceries. The pain significantly impacts his sleep, with the patient reporting only sleeping for three hours the previous night. He notes he cannot raise his hand high and has experienced associated symptoms, including pain radiating to his hand and pain with writing. He describes pain in the middle of his hand that occurred for the first time last night. The patient has a history of type 2 diabetes, with his last A1c noted as 7.2, an improvement from 8.0 in July. His comorbidities include hypertension, hypercholesterolemia, and hypothyroidism, which are managed with irbesartan, amlodipine, simvastatin, and levothyroxine. He also has a history of a hip issue described as tissue loss, for which he received physical therapy. For mental health, he receives verbal counseling and is prescribed mirtazapine, bupropion, and lorazepam by an JUNIOR SOFTWARE ENGINEER. He takes lorazepam 0.25 mg daily for anxiety. He reports gaining a few pounds recently. Medical History: - Type 2 diabetes mellitus - Hypertension - Hypercholesterolemia - Hypothyroidism - Anxiety - Hip disorder with tissue loss, previou sly evaluated with a CT scan and physical therapy Medications: - Irbesartan for hypertension - Amlodipine for hypertension - Simvastatin for hypercholesterolemia - Metformin 1000 mg twice daily for type 2 diabetes - Levothyroxine for hypothyroidism - Lorazepam 0.25 mg daily for anxiety - Mirtazapine - Bupropion Diagnostic Results: - Labs: A1c was 7.2 last month, which wa s an improvement from 8.0 in July. - Imaging: A CT scan of the hip was perf ormed in September. Social History: - Weight management: Patient reports rec ent weight gain. - Mental health support: Patient receive s verbal counseling from a mental health therapist and medication management from an JUNIOR SOFTWARE ENGINEER. [facility] Medical History (Updated 01/01/25 @ 10:07 by Issac Toney MD) Anxiety Decreased ROM of right shoulder Cataracts, bilateral Hyperlipidemia Constipation Anemia Hip pain, left Pulmonary nodules/lesions, multiple Infiltrate noted on imaging study Bronchiectasis Family History (Updated 01/01/25 @ 09:44 by Kathy Arguelles MA) Mother Heart attack COPD (chronic obstructive pulmonary disease) Colonic disease Father Pneumonia Social History Housing: House Alcohol intake: current Alcohol intake frequency: does not drink Patient Tobacco Use Status: Never used Tobacco e-Cigarette/Vaping Use: Never Used service: No Current occupational status: retired and disabled Cognitive needs: No Hearing needs: Yes (b/l hearing aids ) Vision needs: Yes (rx glasses) Questionnaire PHQ-9 Over the last 2 weeks, how often have you been bothered by any of the following problems? 1. Little interest or pleasure in doing things: not at all 2. Feeling down, depressed, or hopeless: nearly every day 3. Trouble falling or staying asleep, or sleeping too much: not at all 4. Feeling tired or having little energy: not at all 5. Poor appetite or overeating: not at all 6. Feeling bad about yourself - or that you are a failure or have let yourself or your family down: not at all 7. Trouble concentrating on things, such as reading the newspaper or watching television: not at all 8. Moving or speaking so slowly that other people could have noticed. Or the opposite - being so fidgety or restless that you have been moving around a lot more than usual: not at all 9. Thoughts that you would be better off or of hurting yourself in some way: not at all Total score: 3 Source: Developed by Drs. Denis Patricia, Paula Gu, Domo Corral and colleagues, with an educational lazaro from [employer]. Thrive Questionnaire Date Thrive assessed: 01/01/25 I am a: Patient Within the past 12 months, did the food you bought not last and you didn't have the money to get more?: Never true Within the past 12 months, did you worry whether your food would run out before you got money to buy more?: Never true Do you have trouble paying for medicines?: No Do you have trouble getting transportation to medical appointments?: No Do you have trouble paying your heating and electricity bill?: No Do you have trouble taking care of your child, family member or friend?: No Do you have trouble with day-to-day activities such as bathing, preparing meals, shopping, managing finances, etc.?: No Are you currently unemployed and looking for a job?: No Are you interested in more education?: No THRIVE Score: 0 AUDIT C Alcohol Use Questionnaire (AUDIT-C) 1. How often do you have a drink containing alcohol?: Never 3. How often do you have six or more drinks on one occasion?: Never Total Score: 0 CASA-7 AMB Questionnaire CASA-7 Date CASA - 7 assessed: 01/01/25 Feeling nervous, anxious, or on edge: 3 = Nearly every day Not being able to stop or control worryin = Not at all Worrying too much about different things: 0 = Not at all Trouble relaxin = Not at all Being so restless that it is hard to sit still: 0 = Not at all Becoming easily annoyed or irritable: 0 = Not at all Feeling afraid as if something awful might happen: 0 = Not at all Total CASA-7 score (0-4 normal; 5-9 mild; 10-14 moderate; 15-21 severe): 3 Source: Developed by Paula YoonW. Riccardo, Domo Corral and colleagues, with an educational lazaro from [employer]. Review of Systems Narrative - Musculoskeletal: Reports right shoulder pain and stiffness for 4-5 weeks, which he feels radiating down his arm. - Reports pain with overhead arm movements unless the arm is braced. - Neurological: Reports some weakness in his hand and pain that radiates down to it. - Reports new-onset pain in the middle of his hand that started last night. - Denies numbness. - Constitutional: Reports sleep disturbance, with only 3 hours of sleep last night due to pain. - Reports recent weight gain. All systems reviewed & are unremarkable except as reviewed in HPI and above Physical exam (Primary Care) Vital Signs: Last Vital Signs Temp 97.8 F 01/01/25 08:57 Pulse 80 01/01/25 08:57 BP 137/70 01/01/25 08:57 Pulse Ox 98 01/01/25 08:57 Oxygen Delivery Method Room Air 01/01/25 08:57 BMI result Body Mass Index 27.7 Tobacco/Smoking Status: Tobacco use Status Tobacco use date assessed 01/01/25 01/01/25 08:58 Patient Tobacco Use Status Never used Tobacco 01/01/25 08:58 e-Cigarette/Vaping Use Never Used 01/01/25 08:58 PHQ-9: PHQ-9 Score PHQ-9: Total score 3 01/01/25 09:45 Thrive Assessment: Date of Thrive Assessment Date Thrive assessed 01/01/25 01/01/25 08:58 Narrative General: +Alert and oriented, Well nourished, No acute distress. Eye: Pupils are equal, round and reactive to light, Intact accommodation, Extraocular movements are intact, Normal conjunctiva, Vision unchanged. HENT: Normocephalic, Atraumatic, Tympanic membranes are clear, Normal hearing, Oral mucosa is moist, No pharyngeal erythema, Ear canals patent. Respiratory: Lungs CTA bilaterally, No wheeze, Respirations are non-labored. Cardiovascular: Regular rate, Regular rhythm, S1 auscultated, S2 auscultated, No murmur, Good pulses equal in all extremities, Normal peripheral perfusion, No edema. Gastrointestinal: Soft, Non-tender, Non-distended, Normal bowel sounds, No organomegaly. Musculoskeletal: Limited range of motion in the right shoulder, Normal strength, Pain in the right biceps, No tenderness, No swelling, No deformity, Normal gait. Integumentary: Warm, Dry, [place], Intact. Neurologic: Alert, Oriented, Normal sensory, Normal motor function, No focal defects, Cranial Nerves II-XII are grossly intact, Normal deep tendon reflexes. Psychiatric: Cooperative, Appropriate mood & affect, Normal judgment. Coding Level of Care Code Est Pt Level 4 (69008) Complex EM visit Add On G2211 Diagnoses Decreased ROM of right shoulder M25.611 Primary hypertension I10 Hypertension type: primary hypertension Hyperlipidemia, unspecified hyperlipidemia type E78.5 Hyperlipidemia type: unspecified Type 2 diabetes mellitus with hyperglycemia, without long-term current use of insulin E11.65 Diabetes mellitus complication status: with hyperglycemia Diabetes mellitus terminal operations supervisor insulin use: without [facility] use Diabetes mellitus type: type 2 Other specified hypothyroidism E03.8 Hypothyroidism type: other Anxiety F41.9 Assessment & Plan Assessment & Plan (1) Decreased ROM of right shoulder: Comment: - The patient presents with right shoulder pain, limited active range of motion, and pain with resisted abduction, suggestive of a rotator cuff injury, nerve impingement or tendinitis. - The plan includes ordering an X-ray of the shoulder and a referral for physical therapy. - The patient will also be advised to contact the orthopedics office for an evaluation. (Already established with them) - If symptoms persist for six weeks, an MRI will be considered. Code(s): M25.611 - Stiffness of right shoulder, not elsewhere classified Category: Medical (2) Hypertension: Comment: - Blood pressure appears well-controlled. - The plan is to continue current medications, including irbesartan and amlodipine. Code(s): I10 - Essential (primary) hypertension Category: Medical Qualifiers: Hypertension type: primary hypertension Qualified Code(s): I10 - Essential (primary) hypertension (3) Hyperlipidemia: Comment: - The plan is to continue simvastatin. Code(s): E78.5 - Hyperlipidemia, unspecified Category: Medical Qualifiers: Hyperlipidemia type: unspecified Qualified Code(s): E78.5 - Hyperlipidemia, unspecified (4) Diabetes mellitus: Comment: - The patient is stable, with a recent A1c of 7.2, which is at goal for his age. - No changes will be made to his diabetes medications, and he will continue metformin 1000 mg twice daily. Code(s): E11.9 - Type 2 diabetes mellitus without complications Category: Medical Qualifiers: Diabetes mellitus complication status: with hyperglycemia Diabetes mellitus terminal operations supervisor insulin use: without terminal operations supervisor use Diabetes mellitus type: type 2 Qualified Code(s): E11.65 - Type 2 diabetes mellitus with hyperglycemia (5) Hypothyroid: Comment: - Continue levothyroxine 50 mcg daily. - Current thyroid function tests suggest good control (TSH at 3.2). Category: Medical Qualifiers: Hypothyroidism type: other Qualified Code(s): E03.8 - Other specified hypothyroidism (6) Anxiety: Comment: - The patient is managed by a mental health provider. - This practice will no longer prescribe lorazepam, and the patient is advised to request refills from their JUNIOR SOFTWARE ENGINEER. (PDMP reviwed) Code(s): F41.9 - Anxiety disorder, unspecified Category: Medical Plan: - Diabetes management: The patient's A1c has improved to 7.2, which is considered a good level for his age. - No changes to his diabetes regimen are recommended at this time. - Hypertension management: The patient's blood pressure readings are good. - Recommended follow-up in three months for continued management. Patient was informed and verbally consented to the use of an ambient scribe for clinic note documentation during this visit. Plan I discussed with the patient that his right shoulder pain is likely a muscular issue, such as a rotator cuff injury or tendinitis, given that his pain is present with active movement but not with passive movement. I outlined a plan that includes a shoulder x-ray, physical therapy, and an evaluation by his orthopedist, with whom he is an established patient. I informed him that if the pain continues for about six more weeks, we can consider getting an MRI. We reviewed his chronic medical conditions. I noted the improvement in his A1c to 7.2 and confirmed there would be no changes to his diabetes medications. I also advised him that our practice would no longer be prescribing lorazepam and that he should discuss future refills with his mental health provider. I recommended he follow up with me in three months. Orders: Orders PT Evaluation and Treatment Today M25.611 - Stiffness of right shoulder, not elsewhere classified XR shoulder RT min 2V Today M25.611 - Stiffness of right shoulder, not elsewhere classified Patient Instructions: - Go to the orthopedics office to schedule an appointment for an evaluation of your shoulder pain. - You are already a patient there, so you do not need a new referral note. - After setting up that appointment, go to the radiology department on the first floor to get an X-ray of your right shoulder. - Physical therapy has been ordered for your shoulder, and their office will call you to schedule sessions. - Continue taking all your current medications for diabetes, blood pressure, cholesterol, and thyroid as prescribed. - For your anxiety medication, lorazepam, please ask your mental health provider for future refills. - Please make a follow-up appointment at the front end driver for three months from now (around March).
--- OUTSIDE RECORDS SUMMARY | 2025-01-01 10:05 | XMS_ITS | Clinical Summary ---
Author Organization [address] [facility] Address [address] [place] [address] Phone Care Team Providers Care Lead Nurse Name Role Phone Radu Molina MD Primary Care Provider [phone] Allergies Active Allergy Reactions Criticality Noted Date [...] AM EDT Office Visit Orthopedic Surgery - [address] [address] Gurwinder Bettencourt, DPM Primary osteoarthritis of both feet (Primary Dx); Dermatophytosis of nail; Diabetic mononeuropathy simplex (CMS/HCC V24, CMS/FORMER[facility] V28); Ingrowing nail; Pain in toe of [...] age 85 COPD Mother colon polyps/re section, [place], stroke, HTN age 71 Relation Name Status [...] AM EST Office Visit Orthopedic Surgery - [address] [address] Gurwinder Bettencourt, DPDaisy [address] [place] [phone] Health Maintenance Due Date Last Done Comments [...] Insurance MEDICAID - [place] MEDICARE Care Teams Lead Nurse Relationship Specialty Start Date End Date Radu Molina MD [address] [place] [address] Dr Nate MA PCP - General Internal Medicine 12/25/23
--- OUTSIDE RECORDS SUMMARY | 2025-01-01 10:05 | XMS_ITS | Clinical Summary ---
Author Organization [employer] Address [address] [facility] [address] [place] [address] Care Team Providers Care Instructional Technologist Name Role Phone Unavailable Primary Care Provider [...]
--- OUTSIDE RECORDS SUMMARY | 2025-01-01 10:05 | XMS_ITS | Encounter Summary ---
Author Organization [employer] Address [address] [facility] [address] [place] [address] Care Team Providers Care Advertising Strategist Name Role Phone Unavailable Primary Care Provider Unavailabl e Encounter Details Date Type Department Care Team (Late st Contact Info) Description 01/09/2024 Telephone [facility] [address] [place] [address] Otto Bernabe, CORINNA [address] [place] [address] Social History Tobacco Use Types Packs/Day Years [...]
== END 2025-01-01 10:07 | disposition home or self-care (01) ==
LOC: HO.HMCHD 09:15
PROVIDERS: PCP Student in an Organized Health Care Education/Training Program; Visit Provider Student in an Organized Health Care Education/Training Program
DX: M25.611 Stiffness of right shoulder, not elsewhere classified (principal); I10 Essential (primary) hypertension; E78.5 Hyperlipidemia, unspecified; E11.65 Type 2 diabetes mellitus with hyperglycemia; E03.8 Other specified hypothyroidism; F41.9 Anxiety disorder, unspecified

== ENCOUNTER → 2025-01-01 10:29 | Outpatient (BNV) | payer MEDICARE, MEDICAID, SELFPAY | PROVIDERS: PCP Student in an Organized Health Care Education/Training Program; Visit Provider Radiology Diagnostic Radiology | DX: M19.011 Primary osteoarthritis, right shoulder (principal); M25.711 Osteophyte, right shoulder; M25.611 Stiffness of right shoulder, not elsewhere classified | CPT/HCPCS: 73030 ==

== ENCOUNTER 2025-02-14 11:27 | Outpatient (AMB) | payer MEDICARE, MEDICAID, SELFPAY ==
--- NOTE | 2025-02-14 11:47 | MHC.OFFVIS ---
Vital Signs 02/14/25 11:51 Height 5 ft 8 in Weight 182 lb BMI 27.7 Intake Visit Reasons: NewProb- RT shoulder pain Intake Note: Prosper is a 70 year old male who presents today as an established patient for a new problem visit to evaluate right shoulder pain. Patient seen by PCP with complaints of pain and stiffness. He does not recall any injury, however per note he believes he recently injured his arm after lifting grocery bags. An order was placed for physical therapy and referred to orthopedics. Today patient reports that he has been attending therapy at [facility], however he continues to have weakness with not much improvement. His last session on Monday suggested maybe a possible tear due to very little improvement. His pain travels down to his bicep and tricep area. States a month ago his pain traveled down to his wrist however this has resolved. Allergies lisinopril Allergy (Intermediate, Verified 02/14/25 11:58) Cough sulfamethoxazole (From Bactrim) Allergy (Mild, Verified 02/14/25 11:58) unknown trimethoprim (From Bactrim) Allergy (Mild, Verified 02/14/25 11:58) unknown Medication List - Last Reconciled 02/14/25 by Domenica Clay PA-C amlodipine (Norvasc) 5 mg PO DAILY aspirin (Adult Aspirin Regimen) 81 mg PO DAILY bupropion HCl XL (Wellbutrin XL) 300 mg PO QAM irbesartan 150 mg PO DAILY levothyroxine (Levoxyl) 50 mcg PO DAILY lorazepam 0.25 mg (1/2 x 0.5 mg) PO DAILY PRN metformin 1,000 mg PO BID mirtazapine 7.5 mg PO DAILY simvastatin 40 mg PO DAILY HPI Comments Details: History of Present Illness The patient is a 70-year-old male presenting for evaluation of right shoulder pain and weakness. He saw his primary care physician, on January 01, who performed X-rays and informed him the findings were consistent with normal wear and tear. Following the referral from his PCP, the patient began physical therapy, with an initial evaluation on January 29 and subsequent sessions on January 31, , and . His physical therapist noted that his right arm was not getting any stronger and suspected a rotator cuff tear. The patient reports no specific injury or fall that precipitated his symptoms. His symptoms are most pronounced with overhead activities. He also experiences some pain when reaching for his back pocket, though it is less severe than the overhead pain. During physical therapy, he experienced shaking and loss of movement while attempting exercises with a 1-pound weight. Social History [facility] Medical History (Updated 02/14/25 @ 12:26 by Domenica Clay PA-C) Anxiety Decreased ROM of right shoulder Cataracts, bilateral Hyperlipidemia Constipation Anemia Hip pain, left Pulmonary nodules/lesions, multiple Infiltrate noted on imaging study Bronchiectasis Family History (Updated 01/01/25 @ 09:44 by Kathy Arguelles MA) Mother Heart attack COPD (chronic obstructive pulmonary disease) Colonic disease Father Pneumonia Social History Housing: House Alcohol intake: current Alcohol intake frequency: does not drink Patient Tobacco Use Status: Never used Tobacco e-Cigarette/Vaping Use: Never Used service: No Current occupational status: retired and disabled Current occupation: right hand dominant Cognitive needs: No Hearing needs: Yes (b/l hearing aids ) Vision needs: Yes (rx glasses) Review of Systems Narrative Review of Systems - Musculoskeletal: Reports right shoulder pain, particularly with overhead movements, and weakness in the right arm. - General: Denies a specific injury or fall causing the shoulder issues. Physical Exam Exam Exam: Physical Exam - Musculoskeletal - Right Shoulder: - Range of Motion: Limited active forward flexion and painful overhead movement. - He has difficulty reaching the back of his head. - Some pain is noted with internal rotation when reaching for his back pocket. - Strength: Weakness noted with forward flexion against resistance. - Weakness noted with external rotation against resistance. - Positive lift-off test with weakness noted, suggesting rotator cuff involvement. Vital Signs: BMI result Body Mass Index 27.7 Assessment & Plan Assessment & Plan (1) Injury of right rotator cuff: Code(s): S46.001A - Unspecified injury of muscle(s) and tendon(s) of the rotator cuff of right shoulder, initial encounter Category: Medical Plan Plan The patient's right shoulder pain and profound weakness are highly suggestive of a rotator cuff pathology. X-ray findings demonstrate an anatomical predisposition to rotator cuff injury, including severe AC joint arthritis and bone spurs on the humeral head, which can cause impingement and tearing of the rotator cuff tendon. Physical exam findings of weakness in forward flexion, external rotation, and a positive lift-off test further support a likely rotator cuff tear. An MRI of the right shoulder will be ordered to confirm the diagnosis and evaluate the extent of the suspected tear. The patient will be contacted by the hospital to schedule the imaging. A follow-up will be scheduled to discuss the results and determine the subsequent treatment plan. The patient is advised to put his physical therapy sessions on hold, as they are not currently beneficial. Consent Patient was informed and verbally consented to the use of an ambient scribe for clinic note documentation during this visit. Orders: Orders MR shoulder RT wo con Today M75.81 - Other shoulder lesions, right shoulder Coding Level of Care Code Est Pt Level 3 (48062) Add On Problem Visit Only Diagnoses Injury of right rotator cuff S46.001A
[2025-02-14 11:51] VITALS: BMI 27.7
--- OUTSIDE RECORDS SUMMARY | 2025-02-14 13:32 | XMS_ITS | Patient Health Record ---
Author Organization [facility] Address [address] [place] [address] Care Team Providers Care Curtain Inspector Name Role Phone ANGELIKA ELISE MD Primary Care Provider Unavaila ble Allergies Allergen (clinical drug ingredient) Drug/Non Drug Allergy documented on EMR Reaction Allergy Type Onset Date Status sulfamethoxazole / trimethoprim Bactrim rash Drug Allergy Active lisinopril Lisinopril cough Drug Allergy Activ e Reason For Referral No Information Medications Medication SIG (Take, Route, Frequency, Duration) Notes Start Date End Date Status Wellbutrin XL 300 MG Tablet Extended Release 24 Hour 1 tab(s) orally every 24 hours Active Ativan 0.5 MG Tablet 1 tab orally daily Active Centrum Silver - Tablet Chewable 1 tab(s) chewed once a day Active Mirtazapine 15 MG Tablet 1 tab(s) orally once a day (at bedtime) Active amLODIPine Besylate 5 MG Tablet 1 tab(s) orally once a day Active Valsartan 160 MG Tablet 1 tab(s) orally daily Active Simvastatin 40 MG Tablet 1 tab(s) orally at bedtime Active Aspirin 81 MG Tablet Delayed Release 1 tab orally once daily A ctive metFORMIN HCl ER 750 MG Tablet Extended Release 24 Hour 2 tabs in the am and 1 tab with supper orally BID; Duration: 30 day(s) Active Immunizations Vaccine Route Administration Date Status Comme nts FLU- FLUVIRIN, PRE-FILLED SYRINGE 0.5 ml IM Intramuscular 11/28/2012 Administered FLU- FLUVIRIN, PRE-FILLED SYRINGE 0.5 ml IM Intramuscular 12/10/2013 Administered H1N1 inactivated injectable IM Intramuscular 03/12/2009 Administered Influenza IM Intramuscular 11/20/2008 Administered Influenza IM Intramuscular 11/25/2009 Administered Influenza IM Intramuscular 12/21/2010 Administered Influenza IM Intramuscular 12/27/2011 Administered Influenza IM Intramuscular 11/26/2014 Administered Influenza, Flublok IM Intramuscular 11/20/2018 Administere d Influenza, Fluzone QUAD, 3+ yrs, IM Intramuscular 11/30/2016 Administered Influenza, Fluzone QUAD, 3+ yrs, IM Intramuscular 12/07/2017 Pending Influenza, Fluzone Quad.5 ml, IM Intramuscular 12/09/2015 Administered Pneumococcal (PPV23, adult) IM Intramuscular 02/25/2010 Administered SHINGRIX HZV VACCINE Unknown 08/09/2017 Administered SHINGRIX HZV VACCINE Unknown 12/01/2017 Administered Td (Tetanus Diphtheria) IM Intramuscular 12/26/2018 Admini stered Tdap (Adacel)-64,State Supplied Unknown 12/12/2006 Administered Zostavax (Shingles) Unknown 07/08/2015 Administered Social History Tobacco Use: Social History Observation Description Date Details (start date - stop date) Never Smoker NA - NA Social History Drug/Alcohol: Social Info Question Answer Notes Alcohol Screen Did you have a drink containing alcohol in the past year? 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 exposure: No alcohol use: no drug use: No Hobbies/Exercise habits: little walking Coffee/Tea/Soda: no Marital Status single experience No Living with alone in [facility] e smokers in household No Drugs no Section Notes: healthcare proxy is emergenc y supervising floorperson healthcare proxy is emergenc y supervising floorperson healthcare proxy is emergenc y supervising floorperson healthcare proxy is emergenc y supervising floorperson healthcare proxy is emergenc y supervising floorperson healthcare proxy is emergenc y supervising floorperson healthcare proxy is emergenc y supervising floorperson healthcare proxy is emergenc y supervising floorperson healthcare proxy is emergenc y supervising floorperson healthcare proxy is emergenc y supervising floorperson healthcare proxy is emergenc y supervising floorperson healthcare proxy is emergenc y supervising floorperson healthcare proxy is emergenc y supervising floorperson healthcare proxy is emergenc y supervising floorperson healthcare proxy is emergenc y supervising floorperson healthcare proxy is emergenc y supervising floorperson healthcare proxy is emergenc y supervising floorperson healthcare proxy is emergenc y supervising floorperson healthcare proxy is emergenc y supervising floorperson healthcare proxy is emergenc y supervising floorperson healthcare proxy is emergenc y supervising floorperson healthcare proxy is emergenc y supervising floorperson healthcare proxy is emergenc y supervising floorperson healthcare proxy is emergenc y supervising floorperson, never smoked healthcare proxy is emergenc y supervising floorperson, never smoked Problems Problem Type SNOMED Code ICD Code Onset Dates Problem Status W/U Status Risk Notes Problem Family history of polyp of colon (891600579) Family history of colonic polyps (Z83.71) Active confirmed Problem Essential hypertensi on (23506589) Hypertension, essential (I10) Active confirmed Problem Diabetes mellitus ty pe 2 (06661762) Diabetes mellitus type 2, uncomplicated (E11.9) Active confirmed Problem Lumbar radiculopathy (245133812) Lumbar radiculopathy (M54.16) Active confirmed Problem Polyneuropathy due t o type 2 diabetes mellitus (269264229) Diabetic polyneuropathy associated with type 2 diabetes mellitus (E11.42) Active confirmed Problem Recurrent major depression in remission (07371293) Recurrent major depressive disorder, in partial remission (F33.41) Active confirmed Problem Pure hypercholesterolemia (223795844) Pure hypercholesterol emia, unspecified (E78.00) Active confirmed Problem Sensorineural hearin g loss, bilateral (742244193) Sensorineural hearing loss (SNHL) of both ears (H90.3) Active confirmed Problem Right bundle branch block (32105086) RBBB (right bundle branch block) (I45.10) Active confirmed Plan Of Treatment No Information Insurance Providers Payer Name Payer Address Payer Phone Subscriber Number Group Number Insured Name Patient Relationship to Insured Coverage Start Date Coverage End Date [facility] [address] [address] [place] [id number] CHRISTIANO DORMAN Self - patient is the insured Medical (General) History Medical History History ICD Code diabetes mellitus, type 2 (dx 04/07) hypertension, essential hypercholesterolemia/Hypertriglyceridemi a depression/anxiety,[employer]an [employer] in [place] , 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 Colon(FamHx COlon polyps)-nl 01/19/09///Colon02/14/14-erythema edema rectum0-10cm -Rec [id number] nl=dict Surgical History Surgery Date(Month/Year) liver biopsy, Dr aGrcia oral surgery Hospitalization History Reason Date(Month/Year)
--- OUTSIDE RECORDS SUMMARY | 2025-02-14 13:32 | XMS_ITS | Encounter Summary ---
Author Organization [employer] Address [address] [facility] [address] [place] [address] Care Team Providers Care Digital Community Manager Name Role Phone Unavailable Primary Care Provider Unavailabl e Encounter Details Date Type Department Care Team (Late st Contact Info) Description 01/09/2024 Telephone [facility] [address] [place] [address] Otto Bernabe, CORINNA [address] [place] [address] Social History Tobacco Use Types Packs/Day Years [...]
--- OUTSIDE RECORDS SUMMARY | 2025-02-14 13:32 | XMS_ITS | Clinical Summary ---
Author Organization [address] [facility] Address [address] [place] [address] Phone Care Team Providers Care Dimensional Integration Engineer Name Role Phone Radu Molina MD Primary Care Provider [phone] Allergies Active Allergy Reactions Criticality Noted Date [...] 07/02/2018 Anxiety 11/22/2017 Diabetes mellitus type 2 with neurological manif estations 11/22/2017 Hyperlipidemia 11/22/2017 Hypertension 11/22/2017 Encounters Date Type Department Care Team Description 01/21/2025 9:30 AM EST Office Visit Orthopedic Surgery [address] [address] Gurwinder Bettencourt, DPM Hammer toe of left foot (Primary Dx); Primary osteoarthritis of both feet; Dermatophytosis of nail; Diabetic mononeuropathy simplex (CMS/HCC V24, CMS/HCC V28); Ingrowing nail; Pain in toe of right foot; Acquired hammer toe of right foot; Pain in toe [...] age 85 COPD Mother colon polyps/re section, [place], stroke, HTN age 71 Relation Name Status [...] on file Sexual Orientation Not on file Last Filed Vital Signs Vital Sign Reading [...] Care Team (Late st Contact Info) Description 04/23/2025 10:15 AM EST Office Visit Orthopedic Surgery - [facility] [address] [address] Gurwinder Bettencourt, DPM [address] [address] Health Maintenance Due Date Last Done Comments Colorectal Cancer Screening: Colonoscopy 03/18/1955 Diabetes: Annual GFR (Glomerular Filtration Rate) 03/18/1955 Drug Screen 03/18/1955 Non-Opioid Controlled Substance Agreement 03/18/1955 Diabetes: Annual Foot Exam 03/18/1965 Diabetes: Annual Retina Eye Exam 03/18/1965 Pneumococcal Vaccine: 50+ Years (1 of 2 - PCV) 03/18/1974 Abdominal Aortic Aneurysm (AAA) Screen 10/23/2023 Cholesterol Screening (Lipid Panel) 10/23/2023 Diabetes: Annual Urine Albumin-Creatinine Ratio (uACR) 10/23/2023 Diabetes: Blood Sugar Control Test (HGBA1C) 10/23/2023 Falls Risk Assessment 10/23/2023 Hepatitis C Screening 10/23/2023 Hypertension/CHF/CAD Annual BMP Blood Test 10/23/2023 Medicare Annual Wellness Visit 10/23/2023 Social Influencers of Health Screening 10/23/2023 Depression Screening 02/28/2024 COVID-19 Vaccine ( season) 2025 11/29/2024, 11/24/2023, 01/26/2023, Additional history exists DTaP,Tdap,and Td Vaccines (2 - Td or Tdap) 03/24/2032 03/24/2022 Zoster Vaccines Completed 12/01/2017, 07/28, 07/08/2015 RSV Immunization Adult Patients Completed 02/08/2023 Influenza Vaccine Completed 11/29/2024 HIB Vaccines Aged Out No longer eligi [...] Insurance MEDICAID - [place] MEDICARE Care Teams Dimensional Integration Engineer Relationship Specialty Start Date End Date Radu Molina MD [address] [place] [address] Dr Nate [place] PCP - General Internal Medicine 12/25/23
--- OUTSIDE RECORDS SUMMARY | 2025-02-14 13:32 | XMS_ITS | Clinical Summary ---
Author Organization [employer] Address [address] [facility] [address] [place] [address] Care Team Providers Care Procurement Representative Name Role Phone Unavailable Primary Care Provider [...]
== END 2025-02-14 13:04 | disposition home or self-care (01) ==
LOC: HO.HOS 11:27
PROVIDERS: PCP Student in an Organized Health Care Education/Training Program; Visit Provider Physician Assistant
DX: S46.011A Strain of muscle(s) and tendon(s) of the rotator cuff of right shoulder, initial encounter (principal)
CPT/HCPCS: 99213; G2211

== ENCOUNTER → 2025-02-14 11:27 | Outpatient (BNVA) | payer MEDICARE, MEDICAID, SELFPAY | PROVIDERS: PCP Student in an Organized Health Care Education/Training Program; Visit Provider Physician Assistant | DX: S46.001A Unspecified injury of muscle(s) and tendon(s) of the rotator cuff of right shoulder, initial encounter (principal); M75.41 Impingement syndrome of right shoulder; Z79.82 Long term (current) use of aspirin | CPT/HCPCS: 99212 ==